=== PATIENT | male | born 1940 | race Caucasian/White ===

== ENCOUNTER 2019-08-06 12:10 | Inpatient (IN) ==
--- NOTE | 2019-08-06 13:06 | Emergency Department Note ---
ED Provider Note CHIEF COMPLAINT: Fall, right hip pain HISTORY OF PRESENTING ILLNESS: This is a 78-year-old male who presents to the emergency department via EMS with complaint of right hip pain after a fall this afternoon. Patient notes that he was working in the garage and was bending over and looking up a lot, he states he got lightheaded for a second and fell landing on his right hip. He has been unable to walk on the leg since the injury. He notes severe pain with any attempts to move the leg that he rates as 10/10, but states he does not have any pain at rest. He denies any numbness/tingling of the leg. He denies any previous injury to this leg. He did not hit his head and there was no loss of consciousness, he denies any other injuries from the fall. He does not take blood thinner medications. He reports a history of bad neuropathy in his feet, and states that he feels this is part of why he fell. He denies any chest pain, shortness of breath, palpitations, persistent dizziness, and denies any syncope. He denies abdominal pain, nausea, vomiting, or recent illness. REVIEW OF SYSTEMS: A complete 10 point review of systems was reviewed with the patient with pertinent positives and negatives as per history of present illness. All else were negative. PAST MEDICAL HISTORY: Type 2 diabetes SOCIAL HISTORY: Lives at home, he is a former smoker ALLERGIES: No known allergy PHYSICAL EXAM: CONSTITUTIONAL: Pleasant and cooperative. No acute distress, but appears anxious and he states he is nervous. Well appearing and well nourished. HEENT: Normocephalic, atraumatic. PERRL, EOMI. TMs normal. Pharynx normal. NECK: Supple, full active range of motion without discomfort. No midline tenderness to palpation of the cervical spine. RESPIRATORY: Clear to auscultation bilaterally with no wheezing, crackles, rhonchi or stridor. Equal expansion bilaterally. CARDIOVASCULAR: Regular rate and rhythm with no murmurs, rubs or gallops. Normal peripheral perfusion. No edema. GASTROINTESTINAL: Soft, nontender, nondistended. No palpable masses or HSM. Bowel sounds present in all quadrants. No CVA tenderness bilaterally. MUSCULOSKELETAL: No midline tenderness to palpation of the thoracic or lumbar spine. Tenderness to palpation over the right hip joint and pain with flexion and internal/external rotation of the right hip. Right leg appears slightly shortened compared to the left, but is not abnormally rotated. 2+ DP and PT p ulses in the right foot, sensory intact, the foot is pink, warm, and well perfused with brisk cap refill. INTEGUMENTARY: No rash or other significant dermatologic conditions noted. NEUROLOGIC: Alert and oriented X 4 with normal affect. Normal strength and sensation in all 4 extremities. Normal speech. ED COURSE AND MEDICAL DECISION MAKING: CC: Patient presenting with complaint of fall, right hip pain DIFFERENTIAL DIAGNOSIS: Includes, but not limited to hip contusion, hematoma, fracture, dislocation, pelvic fracture, sprain/strain, among others. INTERPRETATION OF LABS: No leukocytosis, no anemia, normal platelets, no significant electrolyte abnormalities, normal renal function, normal liver enzymes. IMAGING: XR hip RT 2V w pelvis, XR femur RT 2V routine HISTORY: 78 years-old Male fall, hip pain acute right hip and femur pain status post fall COMPARISON: None available TECHNIQUE: AP view of the pelvis with 2 views the right hip and 2 views of the right femur FINDINGS: PELVIS/RIGHT HIP: Mildly demineralized appearance of the bones. Degenerative changes of the lumbar spine. Moderate osteophyte is of the femoral acetabular joints. No acute pelvic fracture notified. There is an acute transcervical fracture of the right femur with mild impaction and mild apex superior angulation. No associated dislocation. Mild adjacent soft tissue swelling. FEMUR: Acute proximal femoral fracture as above. Mid and distal femur appear intact. Arterial calcifications are noted. Tricompartmental osteoarthritis of the knee. Trace joint effusion. Mild prepatellar/pretibial soft tissue swelling. IMPRESSION: Acute transcervical fracture of the right femur with mild impaction and mild apex superior angulation. EKG: Poor data quality due to patient tremors, shows normal sinus rhythm with a rate of 89 bpm, normal intervals, no apparent ST or T wave abnormalities, no ectopy by my interpretation. No previous EKG available for comparison. MEDICATION RECONCILIATION: I attest that I have personally reviewed the patient's current medication list. INITIAL VITAL SIGNS REVIEW: I reviewed the patient's initial vital signs and interpret them as follows: T: Afebrile; BP: Hypertensive; HR: Within normal limits; RR: Within normal limits; Pulse Ox: Within normal limits on room air. Blood pressure screening: The patient was found to have an elevated blood pressure, which was felt to be situational. MDM SUMMARY: Patient was evaluated at bedside, history and physical exam performed. Patient is alert and oriented, no acute distress, resting in the stretcher. Patient has tenderness to palpation over the right hip, and increased pain with flexion and rotation of the hip joint. The right leg is slightly shortened in length compared to the left. Neurovascularly intact. Orders were placed at bedside for basic labs, IV placement, x-rays of the pelvis, right hip, and right femur to evaluate for trauma. Patient was offered something for pain, he declines at this time. An EKG was performed due to report of some lightheadedness, this appears to be normal sinus. Patient discussed with Dr. Allison, who agrees with my assessment, plan, and disposition. Labs and imaging reviewed as above, labs are unremarkable. Imaging demonstrates an acute transcervical impacted fracture of the right femoral neck. I spoke on the phone with MARTINE Rivas with [facility] service, who agreed to evaluate the patient for admission. Patient reassessed multiple times throughout ED stay, he continues to be comfortable as long as he is not moving and declines anything for pain. The patient and his were updated on all results and plan for admission and probable surgery, he verbalized understanding and was agreeable to this plan. All questions were answered to the best of my ability at this time. Patient was stable at time of admission. The chart was completed utilizing [employer] Speech voice recognition software. Grammatical errors, random word insertions, pronoun errors, and incomplete sentences are an occasional consequence of this system due to software limitations, ambient noise, and hardware issues. Any formal questions or concerns about the content, text, or information contained within the body of this dictation should be directly addressed to the nurse practitioner for clarification. Impression & Plan Femur fracture, right Past Med/Surg History Family History Other Family history non-contributory Social History Preferred Language: Amharic Communication Ability: Effective Podiatry Doctor Required: No Beliefs That Will Affect Care: None Current Living Situation: Spouse Other Information That Helps Us Care for You: Yes Feels Safe at Home: Yes Safety Concerns: Feels Safe At This Time Smoking Status: Current every day smoker Tobacco Type: smokeless tobacco ; Do You Dip or Chew Tobacco: Yes ; Smoking End Date: 40-50 years ago ; Hx Alcohol Use: No Hx Substance Use: No Results & Data Vital Signs Vital Signs - 24 hr 08/06/19 12:17 08/06/19 13:51 Temperature 36.7 C Temperature Source Oral Pulse Rate 93 H Pulse Rate [Apical] 87 Pulse Rhythm Regular Pulse Rhythm [Apical] Regular Pulse Strength Normal Respiratory Rate 20 18 Respiratory Effort / Characteristics Non-Labored Spontaneous Non-Labored Spontaneous Respiratory Depth Normal Normal Respiratory Pattern Regular Regular Blood Pressure 171/92 H Blood Pressure [Right Arm] 145/69 H Blood Pressure Mean 118 Blood Pressure Mean [Right Arm] 94 Blood Pressure Position Sitting Pulse Oximetry 95 95 Oxygen Delivery Method Room Air Room Air Sepsis Recent Fever Within 48 Hours No Sepsis New/Unexplained Change in Mental Status No Sepsis Action Taken by Nursing No Action Required Laboratory Data Result diagrams: 08/06/19 13:02 08/06/19 12:57 Lab Results 08/06/19 08/06/19 08/06/19 Range/Units 12:57 12:57 13:02 WBC 10.11 (4.8-10.8) K/uL RBC 4.63 L (4.7-6.1) M/uL Hgb 15.1 (14.0-18.0) g/dL Hct 44.2 (42-52) % MCV 95.5 (80-100) fL MCH 32.6 (25-34) pg MCHC 34.2 (32-36) g/dL RDW Std Deviation 42.6 (36.4-46.3) fL RDW Coeff of Amari 12.4 (11.5-14.5) % Plt Count 212 (130-400) K/uL MPV 9.6 (7.4-10.4) fL Immature Gran % (Auto) 0.7 % Neut % (Auto) 71.5 % Lymph % (Auto) 18.7 % [place] % (Auto) 7.4 % Eos % (Auto) 1.4 % Baso % (Auto) 0.3 % Immature Gran # (Auto) 0.07 H (0.00-0.02) K/uL Neut # (Auto) 7.23 H (1.4-6.5) K/uL Lymph # (Auto) 1.89 (1.2-3.4) K/uL [place] # (Auto) 0.75 H (0.11-0.59) K/uL Eos # (Auto) 0.14 (0-0.5) K/uL Baso # (Auto) 0.03 (0-0.2) K/uL APTT Cancelled PTT Ratio Cancelled Sodium 138 (136-145) mmol/L Potassium 4.0 (3.5-5.1) mmol/L Chloride 105 (98-107) mmol/L Carbon Dioxide 25 (21-32) mmol/L Anion Gap 8.0 (3-11) BUN 15 (7-18) mg/dl Creatinine 1.37 (0.6-1.4) mg/dl Est Cr Clr Drug Dosing 48.9 ml/min Est GFR ( Amer) 57.7 Est GFR (Non-Af Amer) 49.7 BUN/Creatinine Ratio 10.7 (10-20) Glucose 123 H (70-99) mg/dl Calcium 9.8 (8.5-10.1) mg/dl Total Bilirubin 0.7 (0.2-1) mg/dl AST 16 (15-37) U/L ALT 24 (12-78) U/L Alkaline Phosphatase 61 (45-117) U/L Total Protein 7.9 (6.4-8.2) gm/dl Albumin 4.2 (3.4-5.0) gm/dl Globulin 3.7 (2.5-4.0) gm/dl Albumin/Globulin Ratio 1.1 (0.9-2) Administered Medications Lactated Ringer's (Lr) 1,000 mls @ 100 mls/hr IV .Q10H OMEGA Stop: 09/05/19 16:18 Last Admin: 08/06/19 16:54 Dose: 100 mls/hr Documented by: [id number] Discharge Plan Visit Data *Final* Discharge Date/Time: 08/06/19 15:40 Chief Complaint: Fall Stated Complaint: fall ED Provider: Hemant Allison ED Midlevel Provider: Ayde Low Discharge Problem: Femur fracture, right Patient Disposition: Admitted As Inpatient Condition: Good Discharge Instructions Interventions: ED Discharge Assessment Last Done: 08/06/19 15:40
[2019-08-06 13:19] LABS: Basophils # (auto) 0.03 K/uL (0-0.2); Basophils % (auto) 0.3 %; Eosinophils # (auto) 0.14 K/uL (0-0.5); Eosinophils % (auto) 1.4 %; Hematocrit (blood only) 44.2 % (42-52); Hemoglobin 15.1 g/dL (14.0-18.0); Immature Granulocytes # (auto) 0.07 K/uL (0.00-0.02); Immature Granulocytes % (auto) 0.7 %; Lymphocytes # (auto) 1.89 K/uL (1.2-3.4); Lymphocytes % (auto) 18.7 %; Mean Corpuscular Hemoglobin 32.6 pg (25-34); Mean Corpuscular Hgb Conc 34.2 g/dL (32-36); Mean Corpuscular Volume 95.5 fL (80-100); Mean Platelet Volume 9.6 fL (7.4-10.4); Monocytes # (auto) 0.75 K/uL (0.11-0.59); Monocytes % (auto) 7.4 %; Neutrophils # (auto) 7.23 K/uL (1.4-6.5); Neutrophils % (auto) 71.5 %; Platelet Count 212 K/uL (130-400); RDW Coefficient of Variation 12.4 % (11.5-14.5); RDW Standard Deviation 42.6 fL (36.4-46.3); Red Blood Count 4.63 M/uL (4.7-6.1); White Blood Count 10.11 K/uL (4.8-10.8)
--- NOTE | 2019-08-06 13:30 | XRay Report ---
XR hip RT 2V w pelvis, XR femur RT 2V routine HISTORY: 78 years-old Male fall, hip pain acute right hip and femur pain status post fall COMPARISON: None available TECHNIQUE: AP view of the pelvis with 2 views the right hip and 2 views of the right femur FINDINGS: PELVIS/RIGHT HIP: Mildly demineralized appearance of the bones. Degenerative changes of the lumbar spine. Moderate oste ophyte is of the femoral acetabular joints. No acute pelvic fracture notified. There is an acute garay scervical fracture of the right femur with mild impaction and mild apex superior angulation. No assoc iated dislocation. Mild adjacent soft tissue swelling. FEMUR: Acute proximal femoral fracture as above. Mid and distal femur appear intact. Arterial calcifications are noted. Tricompartmental osteoarthritis of the knee. Trace joint effusion. Mild prepatellar/preti bial soft tissue swelling. IMPRESSION: Acute transcervical fracture of the right femur with mild impaction and mild apex superio r angulation. ACT 112: Negative or not required by law. The above report was generated using voice recognition software. It may contain grammatical, syntax o r spelling errors. Electronically signed by: Kris Olvera M.D. 08/06/2019 1:29 PM
[2019-08-06 13:34] LABS: Albumin Globulin Ratio 1.1 (0.9-2); Albumin Level 4.2 gm/dl (3.4-5.0); BUN Creatinine Ratio 10.7 (10-20); Bilirubin,Total 0.7 mg/dl (0.2-1); Calcium 9.8 mg/dl (8.5-10.1); Creatinine Clr Calc Pharmacy 48.9 ml/min; Est GFR (African American) 57.7; Est GFR (Non-African American) 49.7; Globulin 3.7 gm/dl (2.5-4.0); Total Protein 7.9 gm/dl (6.4-8.2)
--- NOTE | 2019-08-06 15:20 | History & Physical Report ---
Date of Service August 06, 2019 Assessment & Plan (1) Femur fracture, right: This is a 78-year-old male with a PMH of type 2 diabetes and smokeless tobacco use who presents after fall this afternoon and was found to have acute fracture of right femur. S/p mechanical fall in setting of peripheral neuropathy Femur XR with acute transcervical fracture of the right femur with mild impaction and mild apex superior angulation Discussed with [facility] orthopedic service, who will evaluate patient. NPO after midnight Pain control, IV fluids, pre-op abx, bedrest ordered per geriatric hip fracture protocol Pre-op EKG with normal sinus rhythm. CXR with low lung volumes. Cr 1.37, GFR 49.7 Ortho and anesthesiology consulted (2) Diabetes mellitus, type II: A1c 5.7 in Jul 2019 -Hold home agents -SSI while in-patient -BSG AC HS (3) Tobacco use: Daily smokeless tobacco use -Discussed cessation DVT Ppx: SCDs Code status: FULL PCP: Arthur Dispo: Admitted to med/surg. Plan to return home once medically stable. Patient seen in collaboration with Dr. Darby. Please see addendum. History of Present Illness Chief Complaint: Right hip pain Primary Care Provider: Tj Gibson MD This is a 78-year-old male with a PMH of type 2 diabetes and smokeless tobacco use who presents after fall this afternoon. Patient was working in his friend's garage and was reaching upwards working on garage door for extended period of time when he became lightheaded and fell, landing on his right side. Has history of peripheral neuropathy, which he feels also contributed to fall. After fall, patient was able to get up but cannot bear any weight on right leg and friend called EMS. Denies any head trauma or loss of consciousness. Has proximal right leg pain with any type of movement but is pain-free at rest. Denies any lightheadedness, visual changes, chest pain, palpitations or shortness of breath. No recent illnesses, fever or chills. No nausea, vomiting or abdominal pain. Denies dysuria, diarrhea or constipation. Denies any surgical history. Does not take any blood thinning medication. No known history of [place], CKD or DVT/PE. Only medication patient is on his metformin. Allergies Allergy/AdvReac Type Severity Reaction Status Date / Time No Known Allergies Allergy Unverified 10/02/13 13:01 Home Medications Home Medications Medication Instructions Recorded Confirmed Type metformin 500 mg PO BID 08/06/19 08/06/19 History Past Med/Surg History Medical History Diabetes mellitus, type II Tobacco use Surgical History No history of previous surgery Family History Other Family history non-contributory Social History Preferred Language: Azeri Communication Ability: Effective Rat Culturist Required: No Beliefs That Will Affect Care: None Current Living Situation: Spouse Other Information That Helps Us Care for You: Yes Feels Safe at Home: Yes Safety Concerns: Feels Safe At This Time Smoking Status: Current every day smoker Tobacco Type: smokeless tobacco ; Do You Dip or Chew Tobacco: Yes ; Smoking End Date: 40-50 years ago ; Hx Alcohol Use: No Hx Substance Use: No Review of Systems Review of Systems: At least ten systems reviewed and negative except as noted in the HPI. Physical Exam Physical Exam: General Appearance: WD/WN, vitals as above, NAD, sitting up in bed, pleasant, conversing easily Head: normocephalic, atraumatic Eyes: normal inspection, PERRL, conjunctivae normal, anicteric sclerae ENT: external ear and nose normal, oropharynx normal Neck: trachea midline, no thyromegaly normal visual inspection Respiratory: lungs clear to auscultation, no wheeze, rales, rhonchi. Normal insp/exp effort, no accessory muscle use Cardiovascular: regular rate, rhythm, no murmur, normal peripheral pulses. Vessels: no JVD or carotid bruit Chest: normal inspection of chest Abdomen/GI: normal bowel sounds, soft, nontender, no hepatosplenomegaly Extremities/Musculoskelatal: R leg internally rotated and shorteded. TTP along lateral proximal thigh. No deformity noted. No cyanosis or clubbing, extremities motor strength 5/5 Neurologic: PERRL, EOMI, accommodation nl, no face palsy, no dysarthria, CN's II-XI intact bilaterally and moves all extremities Psychiatric: A+Ox3, euthymic affect Skin: no rashes, normal color, warm/dry Results & Data Vital Signs (Past 12 Hours) Vital Signs Temp Pulse Pulse Resp BP BP Pulse Ox 08/06/19 13:51 87 18 145/69 H 95 08/06/19 12:17 36.7 C 93 H 20 171/92 H 95 Laboratory Results Short CBC 08/06/19 08/06/19 08/06/19 Range/Units 12:57 12:57 13:02 WBC 10.11 (4.8-10.8) K/uL RBC 4.63 L (4.7-6.1) M/uL Hgb 15.1 (14.0-18.0) g/dL Hct 44.2 (42-52) % MCV 95.5 (80-100) fL MCH 32.6 (25-34) pg MCHC 34.2 (32-36) g/dL RDW Std Deviation 42.6 (36.4-46.3) fL RDW Coeff of Amari 12.4 (11.5-14.5) % Plt Count 212 (130-400) K/uL MPV 9.6 (7.4-10.4) fL Immature Gran % (Auto) 0.7 % Neut % (Auto) 71.5 % Lymph % (Auto) 18.7 % [place] % (Auto) 7.4 % Eos % (Auto) 1.4 % Baso % (Auto) 0.3 % Immature Gran # (Auto) 0.07 H (0.00-0.02) K/uL Neut # (Auto) 7.23 H (1.4-6.5) K/uL Lymph # (Auto) 1.89 (1.2-3.4) K/uL [place] # (Auto) 0.75 H (0.11-0.59) K/uL Eos # (Auto) 0.14 (0-0.5) K/uL Baso # (Auto) 0.03 (0-0.2) K/uL APTT Cancelled PTT Ratio Cancelled Sodium 138 (136-145) mmol/L Potassium 4.0 (3.5-5.1) mmol/L Chloride 105 (98-107) mmol/L Carbon Dioxide 25 (21-32) mmol/L Anion Gap 8.0 (3-11) BUN 15 (7-18) mg/dl Creatinine 1.37 (0.6-1.4) mg/dl Est Cr Clr Drug Dosing 48.9 ml/min Est GFR ( Amer) 57.7 Est GFR (Non-Af Amer) 49.7 BUN/Creatinine Ratio 10.7 (10-20) Glucose 123 H (70-99) mg/dl POC Glucose (70-99) Calcium 9.8 (8.5-10.1) mg/dl Total Bilirubin 0.7 (0.2-1) mg/dl AST 16 (15-37) U/L ALT 24 (12-78) U/L Alkaline Phosphatase 61 (45-117) U/L Total Protein 7.9 (6.4-8.2) gm/dl Albumin 4.2 (3.4-5.0) gm/dl Globulin 3.7 (2.5-4.0) gm/dl Albumin/Globulin Ratio 1.1 (0.9-2) Blood Type Antibody Screen 08/06/19 08/06/19 Range/Units 16:33 17:27 WBC (4.8-10.8) K/uL RBC (4.7-6.1) M/uL Hgb (14.0-18.0) g/dL Hct (42-52) % MCV (80-100) fL MCH (25-34) pg MCHC (32-36) g/dL RDW Std Deviation (36.4-46.3) fL RDW Coeff of Amari (11.5-14.5) % Plt Count (130-400) K/uL MPV (7.4-10.4) fL Immature Gran % (Auto) % Neut % (Auto) % Lymph % (Auto) % [place] % (Auto) % Eos % (Auto) % Baso % (Auto) % Immature Gran # (Auto) (0.00-0.02) K/uL Neut # (Auto) (1.4-6.5) K/uL Lymph # (Auto) (1.2-3.4) K/uL [place] # (Auto) (0.11-0.59) K/uL Eos # (Auto) (0-0.5) K/uL Baso # (Auto) (0-0.2) K/uL APTT PTT Ratio Sodium (136-145) mmol/L Potassium (3.5-5.1) mmol/L Chloride (98-107) mmol/L Carbon Dioxide (21-32) mmol/L Anion Gap (3-11) BUN (7-18) mg/dl Creatinine (0.6-1.4) mg/dl Est Cr Clr Drug Dosing ml/min Est GFR ( Amer) Est GFR (Non-Af Amer) BUN/Creatinine Ratio (10-20) Glucose (70-99) mg/dl POC Glucose 132 H (70-99) Calcium (8.5-10.1) mg/dl Total Bilirubin (0.2-1) mg/dl AST (15-37) U/L ALT (12-78) U/L Alkaline Phosphatase (45-117) U/L Total Protein (6.4-8.2) gm/dl Albumin (3.4-5.0) gm/dl Globulin (2.5-4.0) gm/dl Albumin/Globulin Ratio (0.9-2) Blood Type AB Positive Antibody Screen NEGATIVE BMP 08/06/19 12:57 Sodium 138 Potassium 4.0 Chloride 105 Carbon Dioxide 25 BUN 15 Creatinine 1.37 Glucose 123 H Calcium 9.8 Liver Function 08/06/19 Range/Units 12:57 Total Bilirubin 0.7 (0.2-1) mg/dl AST 16 (15-37) U/L ALT 24 (12-78) U/L Alkaline Phosphatase 61 (45-117) U/L Albumin 4.2 (3.4-5.0) gm/dl Diagnostic Findings CXR: IMPRESSION: Low lung volumes. There are increased markings at the lung bases. This is nonspecific but may represent atelectasis given the low lung volumes. Hip/pelvis XR: IMPRESSION: Acute transcervical fracture of the right femur with mild impaction and mild apex superior angulation. Femur XR: IMPRESSION: Acute transcervical fracture of the right femur with mild impaction and mild apex superior angulation. ECG Rhythm: normal sinus Supervising Physician Co-Signing Physician Notes Pt was seen and examined. Agreed with Galina VIDAL exam, assessment and plan. 78-year-old male with a PMH of type 2 diabetes present to the ER after fall. Pt said that he fell at his friend garage after helping to fix a door. He said that he became lightheaded and fell. Pelvis/hip xray showed acute transcervical fracture of the right femur with mild impaction and mild apex superior angulation. Pt said that he was very active and able to walk a few block and climbs 1-2 flight of stairs without any chest discomfort and SOB before the fall. Currently denies any chest pain, palpitation, dizziness and SOB. He had a functional capacity with a METS above 4 before fracture his right hip. Pt understood surgical risk such as bleeding, blood clot, infections and even . Ortho will discuss the procedure with him in detail. Will make NPO after midnight. Continue pain control. Will continue monitor closely. MD Wilner
[2019-08-06] MEDS ORDERED: MAGNESIUM HYDROXIDE SUSP 30 ML UDC PO PRN (16:19)
[2019-08-06] MEDS ORDERED: MoRPHine SULFATE 2 MG/ML CARP IV PRN (16:19)
[2019-08-06] MEDS ORDERED: NALOXONE HCL 0.4 MG/1 ML VIAL/CARP IV PRN (16:19)
[2019-08-06] MEDS ORDERED: ACETAMINOPHEN 325 MG TAB PO PRN (16:19)
[2019-08-06] MEDS ORDERED: ONDANSETRON INJ 2 MG/ML 2 ML VIAL IV PRN (16:19)
[2019-08-06] MEDS ORDERED: bisacodyL 10 MG SUPP PR PRN (16:19)
--- NOTE | 2019-08-06 16:27 | XRay Report ---
XR chest 1V portable HISTORY: Preop. COMPARISON: None. FINDINGS: There are low lung volumes. The heart is borderline enlarged. Increased markings at the oly g bases. The upper lung zones are clear. No evidence for pulmonary edema. No pleural effusions. No pn eumothorax. IMPRESSION: Low lung volumes. There are increased markings at the lung bases. This is nonspecific but may represe nt atelectasis given the low lung volumes. ACT 112: Negative or not required by law. Electronically signed by: Andres Carlos M.D. 08/06/2019 4:26 PM
[2019-08-06] MEDS: LACTATED RINGER'S 1,000 ML IV SCH (16:54)
[2019-08-06] MEDS ORDERED: GLUCAGON FOR INJ 1 MG VIAL SQ PRN (18:29)
[2019-08-06] MEDS ORDERED: CARBOHYDRATES FOR HYPOGLYCEMIA PO PRN (18:29)
[2019-08-06] MEDS ORDERED: GLUCOSE 40% GEL 15 GM TUBE PO PRN (18:29)
[2019-08-06] MEDS ORDERED: GLUCOSE 10 TABS/TUBE PO PRN (18:29)
[2019-08-06] MEDS ORDERED: DEXTROSE 50% 50 ML SYRINGE IV PRN (18:29)
--- NOTE | 2019-08-06 19:44 | Anesthesiology Consultation ---
Date of Service August 06, 2019 78 y.o. M s/p mechanical fall for hip fx. Hx of NIDDM and smokeless tobacco. He appears to be a candidate for early operative management. Medicine has made him NPO after midnight for possible surgical intervention on 08/07/19. Assessment & Plan (1) Encounter for pre-operative examination: Chart Review Chart Review: Acceptable Risk for Surgery Consults Requested none History Surgery Operation Date: 08/07/19 07:00 Proposed Procedures p Right Bipolar Hemiarthroplasty versus - Efren Reddy DO s Right Total Hip Arthroplasty - Efren Reddy DO Height/Weight Height: 5 ft 11 in Weight: 93.3 kg Allergies Allergy/AdvReac Type Severity Reaction Status Date / Time No Known Allergies Allergy Unverified 10/02/13 13:01 Medications Home Medications Medication Instructions Recorded Confirmed Last Taken metformin 500 mg PO BID 08/06/19 08/06/19 08/06/19 08:00 Active Medications Generic Name Dose Route Start Last Admin Trade Name Freq PRN Reason Stop Dose Admin Acetaminophen 650 mg 08/06/19 16:19 08/06/19 19:42 Tylenol PO 09/05/19 16:18 650 mg Q4H PRN Administration pain/fever Lactated Ringer's 1,000 mls @ 100 mls/hr 08/06/19 16:19 08/06/19 16:54 Lr IV 09/05/19 16:18 100 mls/hr .Q10H OMEGA Administration NPO Date Last Intake of Fluids: 08/06/19 Time Last Intake of Fluids: 23:59 Date Last Intake of Solids: 08/06/19 Time Last Intake of Solids: 23:59 Past Medical History Medical History Diabetes mellitus, type II Tobacco use Past Family History Family History Other Family history non-contributory Past Surgical History Surgical History No history of previous surgery Social History Smoking Status: Current every day smoker tobacco type: smokeless tobacco Do You Dip or Chew Tobacco: Yes Smoking End Date: 40-50 years ago Hx Alcohol Use: No Hx Substance Use: No Physical Exam Vital Signs Last Vital Signs Temp 36.7 C 08/06/19 16:24 Pulse 93 H 08/06/19 16:54 Resp 20 01/02/20 16:54 BP 168/88 H 08/06/19 16:54 Pulse Ox 94 08/06/19 16:54 Testing Laboratory Results 08/06/19 13:02 08/06/19 12:57 APTT Cancelled 08/06/19 12:57 Blood Type AB Positive 08/06/19 16:33 Antibody Screen NEGATIVE 08/06/19 16:33 08/06/19 17:27 POC Glucose 132 H Electrocardiogram Date: 08/06/19 Findings: + NSR @ (89) Chest X-Ray Date: 08/06/19 Findings: + NAD and + atelectasis (bibasilar)
[2019-08-06] MEDS ORDERED: INSULIN ASPART 100 UNITS/ML 3 ML PEN SC SCH ×2 (21:00)
[2019-08-06] MEDS: DOCUSATE SODIUM/SENNA 50/8.6MG TAB PO SCH (21:07)
[2019-08-07] MEDS ORDERED: Nursing to Pharmacy Communication ONE ×2 (01:31→20:39)
[2019-08-07] MEDS: LACTATED RINGER'S 1,000 ML IV SCH ×3 (02:33→22:29)
[2019-08-07] MEDS ORDERED: CEFAZOLIN 2000MG 2,000 MG/15 ML SYR IV SCH (06:00)
[2019-08-07] MEDS: INSULIN ASPART 100 UNITS/ML 3 ML PEN SC SCH ×3 (06:19→21:45)
--- NOTE | 2019-08-07 07:54 | Orthopedic Consultation ---
Date of Consultation August 07, 2019 Assessment & Plan (1) Transcervical fracture of right femur: Patient will require bipolar hemiarthroplasty versus total hip arthroplasty. Patient is a community ambulator and is quite active. He does not use any kind of assistive device. X-rays to be reviewed by Dr. Reddy. He will discuss the case with the patient and make final decision on which type of prosthesis will be used. Plan for OR today. History of Present Illness Reason for Consultation: Right hip fracture Attending Physician: Chapito Darby MD History of Present Illness Patient is a 78-year-old white male who states that he had gone to a friend's house in [place] to help him with a door that was not shutting. The door sounded to be a type of attic door that was not closing and the patient was continuing to look up at the door and try multiple times to get it hooked shut. He finally succeeded in getting the door shut. At that time he turned his head and looked down quickly and states that he became lightheaded. He lost his balance and fell onto his right side. He denies loss of consciousness. He did not have any lightheadedness after the incident and denies any shortness of breath or chest pain prior to or after. Patient states that he has not had any history of lightheadedness prior to this incident. Patient states that he is fairly active and continues to be a community ambulator. He denies any pain in the right hip prior to the accident. He had immediate pain in the hip and groin on the right side and was having difficulty ambulating. He was brought to the ER here and x-rays were taken. He was found to have a displaced right femoral neck fracture and we have been asked to take care of his fracture. Allergies Allergy/AdvReac Type Severity Reaction Status Date / Time No Known Allergies Allergy Unverified 10/02/13 13:01 Home Medications Home Medications Medication Instructions Recorded Confirmed Type metformin 500 mg PO BID 08/06/19 08/06/19 History Patient History Medical History Diabetes mellitus, type II Tobacco use Surgical History No history of previous surgery Family History Other Family history non-contributory Social History Preferred Language: Sammarinese Communication Ability: Effective Design Teacher Required: No Beliefs That Will Affect Care: None Current Living Situation: Spouse Other Information That Helps Us Care for You: Yes Feels Safe at Home: Yes Safety Concerns: Feels Safe At This Time Smoking Status: Current every day smoker Tobacco Type: smokeless tobacco ; Do You Dip or Chew Tobacco: Yes ; Smoking End Date: 40-50 years ago ; Hx Alcohol Use: No Hx Substance Use: No Review of Systems Review of Systems: No recent fevers, chills, flu or cold-like symptoms. No unexplained weight loss or weight gain. No increased cough or sputum production. Denies any history of chest pain, chest pressure, irregular heartbeat. Denies shortness of breath on exertion or at rest. No history of hemoptysis. Denies any history of unusual abdominal pain, nausea, vomiting, diarrhea. No history of peptic ulcer disease or GERD. Denies hematemesis, melena, hematochezia. Denies history of hematuria, pyuria, dysuria, renal calculi. No history of CVA, TIA, vertigo, migraine headaches. Physical Exam Physical Exam: Patient is currently awake, alert and oriented x3. No acute distress. Pleasant and cooperative. Focusing the exam on the right lower extremity, the right lower extremity is noted to be shortened and externally rotated compared to the left. No attempts are made to do range of motion of the right hip due to fracture. This also applies to the right knee due to causing pain in the right hip. His right knee appears benign without effusion and is nontender on palpation. He has good range of motion of his right ankle and toes and at this time sensation appears to be intact. Nontender at the ankles and toes of the right foot. He states that he gets numbness and tingling in his feet off and on but is not a constant. Left lower extremity is unaffected. Range of motion is within normal limits at the left hip knee and ankle. Upper extremities are unaffected and he has good range of motion and is nontender at the shoulders elbows and wrist. Distal pulses are equal bilaterally of the upper extremities. He denies any neck pain on palpation and has good range of motion. Currently denies any thoracic or low back pain. No gross motor or sensory loss seen at this time. Results & Data Vital Signs (Past 12 Hours) Vital Signs Temp Pulse Resp BP Pulse Ox 08/06/19 23:34 36.4 C L 96 H 17 154/79 H 90 Laboratory Results Laboratory Results WBC 10.11 K/uL (4.8-10.8) 08/06/19 13:02 RBC 4.63 M/uL (4.7-6.1) L 08/06/19 13:02 Hgb 15.1 g/dL (14.0-18.0) 08/06/19 13:02 Hct 44.2 % (42-52) 08/06/19 13:02 MCV 95.5 fL (80-100) 08/06/19 13:02 MCH 32.6 pg (25-34) 08/06/19 13:02 MCHC 34.2 g/dL (32-36) 08/06/19 13:02 RDW Std Deviation 42.6 fL (36.4-46.3) 08/06/19 13:02 RDW Coeff of Amari 12.4 % (11.5-14.5) 08/06/19 13:02 Plt Count 212 K/uL (130-400) 08/06/19 13:02 MPV 9.6 fL (7.4-10.4) 08/06/19 13:02 Immature Gran % (Auto) 0.7 % 08/06/19 13:02 Neut % (Auto) 71.5 % 08/06/19 13:02 Lymph % (Auto) 18.7 % 08/06/19 13:02 [place] % (Auto) 7.4 % 08/06/19 13:02 Eos % (Auto) 1.4 % 08/06/19 13:02 Baso % (Auto) 0.3 % 08/06/19 13:02 Immature Gran # (Auto) 0.07 K/uL (0.00-0.02) H 08/06/19 13:02 Neut # (Auto) 7.23 K/uL (1.4-6.5) H 08/06/19 13:02 Lymph # (Auto) 1.89 K/uL (1.2-3.4) 08/06/19 13:02 [place] # (Auto) 0.75 K/uL (0.11-0.59) H 08/06/19 13:02 Eos # (Auto) 0.14 K/uL (0-0.5) 08/06/19 13:02 Baso # (Auto) 0.03 K/uL (0-0.2) 08/06/19 13:02 APTT Cancelled 08/06/19 12:57 PTT Ratio Cancelled 08/06/19 12:57 Sodium 138 mmol/L (136-145) 08/06/19 12:57 Potassium 4.0 mmol/L (3.5-5.1) 08/06/19 12:57 Chloride 105 mmol/L (98-107) 08/06/19 12:57 Carbon Dioxide 25 mmol/L (21-32) 08/06/19 12:57 Anion Gap 8.0 (3-11) 08/06/19 12:57 BUN 15 mg/dl (7-18) 08/06/19 12:57 Creatinine 1.37 mg/dl (0.6-1.4) 08/06/19 12:57 Est Cr Clr Drug Dosing 48.9 ml/min 08/06/19 12:57 Est GFR ( Amer) 57.7 08/06/19 12:57 Est GFR (Non-Af Amer) 49.7 08/06/19 12:57 BUN/Creatinine Ratio 10.7 (10-20) 08/06/19 12:57 Glucose 123 mg/dl (70-99) H 08/06/19 12:57 POC Glucose 125 (70-99) H 08/07/19 05:59 Calcium 9.8 mg/dl (8.5-10.1) 08/06/19 12:57 Total Bilirubin 0.7 mg/dl (0.2-1) 08/06/19 12:57 AST 16 U/L (15-37) 08/06/19 12:57 ALT 24 U/L (12-78) 08/06/19 12:57 Alkaline Phosphatase 61 U/L (45-117) 08/06/19 12:57 Total Protein 7.9 gm/dl (6.4-8.2) 08/06/19 12:57 Albumin 4.2 gm/dl (3.4-5.0) 08/06/19 12:57 Globulin 3.7 gm/dl (2.5-4.0) 08/06/19 12:57 Albumin/Globulin Ratio 1.1 (0.9-2) 08/06/19 12:57 Blood Type AB Positive 08/06/19 16:33 Antibody Screen NEGATIVE 08/06/19 16:33 Diagnostic Findings Patient: CODIE PELAEZAdmit Date: 08/06/19 MR#: [id number]: [address] Acct ID:[id number]: Date: 1940[facility] Zip: [place] [address] Age: 78Location: ED Sex: M Room/Bed: Att Phy:Diagnosis: fall Mary Phy: Tj Gibson, MDService Date: 08/06/19 Fam Phy:Interpreting Phy: Justus Olvera Admit Phy: Ordering Phy: Ayde Low CRNP cc: ~ XR hip RT 2V w pelvis, XR femur RT 2V routine HISTORY: 78 years-old Male fall, hip pain acute right hip and femur pain status post fall COMPARISON: None available TECHNIQUE: AP view of the pelvis with 2 views the right hip and 2 views of the right femur FINDINGS: PELVIS/RIGHT HIP: Mildly demineralized appearance of the bones. Degenerative changes of the lumbar spine. Moderate osteophyte is of the femoral acetabular joints. No acute pelvic fracture notified. There is an acute transcervical fracture of the right femur with mild impaction and mild apex superior angulation. No associated dislocation. Mild adjacent soft tissue swelling. FEMUR: Acute proximal femoral fracture as above. Mid and distal femur appear intact. Arterial calcifications are noted. Tricompartmental osteoarthritis of the knee. Trace joint effusion. Mild prepatellar/pretibial soft tissue swelling. IMPRESSION: Acute transcervical fracture of the right femur with mild impaction and mild apex superior angulation. ACT 112: Negative or not required by law. The above report was generated using voice recognition software. It may contain grammatical, syntax or spelling errors. Electronically signed by: Kris Olvera M.D. 08/06/2019 1:29 PM
--- NOTE | 2019-08-07 08:15 | Electrocardiogram Report ---
Test Reason : Blood Pressure : / mmHG Vent. Rate : 089 BPM Atrial Rate : 089 BPM P-R Int : 170 ms QRS Dur : 074 ms QT Int : 358 ms P-R-T Axes : 046 006 045 degrees QTc Int : 435 ms Poor data quality, interpretation may be adversely affected Normal sinus rhythm Normal ECG No previous ECGs available Confirmed by Gorge Soto ([id number]) on 08/06/2019 5:50:48 PM Referred By: REFERRED SELF Confirmed By:Christopher Soto
[2019-08-07 12:18] LABS: INR 1.1 (0.9-1.1); Prothrombin Time 11.3 Seconds (9.0-12.0)
[2019-08-07] MEDS ORDERED: ATROPINE SULFATE 0.1 MG/ML 10ML SYR IV PRN (15:49)
[2019-08-07] MEDS ORDERED: ePHEDrine sulfate 50 MG/ML AMP IV PRN (15:49)
[2019-08-07] MEDS ORDERED: ONDANSETRON INJ 2 MG/ML 2 ML VIAL IV PRN (15:49)
[2019-08-07] MEDS ORDERED: fentaNYL citrate 100 MCG/2 ML VIAL IV PRN (15:49)
[2019-08-07] MEDS ORDERED: LIDOCAINE HCL 2% 2 ML VIAL/AMP(20MG/ML) INFIL ONE (15:51)
[2019-08-07] MEDS ORDERED: MIDAZOLAM HCL 1 MG/ML 2ML VIAL ONE ×2 (15:51→17:07)
[2019-08-07] MEDS ORDERED: fentaNYL citrate 100 MCG/2 ML VIAL ONE (15:51)
[2019-08-07] MEDS ORDERED: ONDANSETRON INJ 2 MG/ML 2 ML VIAL ONE (15:51)
[2019-08-07] MEDS ORDERED: DEXAMETHASONE SOD INJ 4 MG/ML VIAL ONE (15:51)
[2019-08-07] MEDS ORDERED: PROPOFOL IV EMULSION 10 MG/ML 20 ML VIAL IV ONE ×3 (15:51→18:34)
[2019-08-07] MEDS ORDERED: KETAMINE HCL INJ 50 MG/ML 10 ML VIAL ONE (15:52)
[2019-08-07] MEDS ORDERED: GLYCOPYRROLATE 0.2 MG/ML VIAL ONE (15:52)
[2019-08-07] MEDS ORDERED: BUPIVACAINE 0.5 % 5 MG/1 ML PF 10ML VIAL ONE (16:35)
[2019-08-07] MEDS ORDERED: BACITRACIN INJ 50,000 UNIT VIAL ONE (16:43)
--- NOTE | 2019-08-07 16:43 | History & Physical Bridge Note ---
Date of Service August 07, 2019 History & Physical Bridge Note I have examined the patient, reviewed the History & Physical and in the interval since the performance of the History & Physical I have noted the following changes of clinical significance: To OR for right hip hemiarthroplasty versus total hip right. NPO. Consent obtained.
[2019-08-07] MEDS ORDERED: ORTHO JOINT ANESTHETIC ONE (16:44)
--- NOTE | 2019-08-07 18:21 | Hospitalist Progress Note ---
Date of Service August 07, 2019 Assessment & Plan (1) Femur fracture, right: Patient is a 78-year-old male with H/O Type 2 diabetes and smokeless tobacco use who presents after fall this afternoon and was found to have acute fracture of right femur. Right hip fracture S/P Mechanical fall in setting of peripheral neuropathy Hip X ray:Acute transcervical fracture of the right femur with mild impaction and mild apex superior angulation. Pain control Appreciate orthopedics input Bowel regimen to prevent constipation Monitor for postop anemia Activity, wound care as per Ortho. (2) Diabetes mellitus, type II: A1c 5.7 in Jul 2019 Hold home agents Continue insulin sliding scale while hospitalized Monitor blood glucose levels (3) Tobacco use: Daily smokeless tobacco use Counseled Cessation DVT Px: SCDs for now Code status: FULL Disposition May need Rehab placement Subjective Patient is seen and examined at bedside Complains of right hip pain with movement Plan for bipolar hemiarthroplasty of right hip today Denies any chest pain, shortness of breath, dizziness, nausea, abdominal pain Family at bedside Offers no other complaints Review of Systems Review of Systems: All systems reviewed & are unremarkable except as noted in HPI & below Physical Exam Physical Exam: Physical Exam: Vitals signs as noted above General Appearance:Moderately built and nourished, no apparent distress Head: normocephalic, Atraumatic Eyes: normal inspection, EOMI Neck: supple, Trachea midline Respiratory/Chest: Normal breath sounds, CTA Cardiovascular: S1, S2, No murmur Abdomen/GI:Soft, Non tender, Bowel sounds present Extremities/Musculoskelatal:normal inspection, no edema, RLE shortened, externally rotated, decreased ROM, right hip tender Neurologic/Psych:AAOX3, grossly no focal neurological deficits Skin: normal color, warm Results & Data Vital Signs (Past 12 Hours) Vital Signs Temp Pulse Resp BP Pulse Ox 08/07/19 14:06 37.1 C 91 H 18 143/77 H 91
--- NOTE | 2019-08-07 18:46 | Post Operative Brief Note ---
Immediate Post Op Note v1 Date of Surgery August 07, 2019 Pre & Post Diagnosis Operation Date: 08/07/19 07:00 Pre-Op Diagnosis: Acute displaced transcervical fracture of the right femur Post-Op Diagnosis: Acute displaced transcervical fracture of the right femur I identified the patient and participated in the time-out.: Yes Procedure Operation Date: 08/07/19 07:00 Actual Procedures p Right Bipolar Hemiarthroplasty, uncemented (Right) - Efren Reddy DO Surgeon Efren Reddy DO Box Feeder Florencio Newton PA-C Estimated Blood Loss 50 Findings Consistent with Post-Op Diagnosis Specimens Bone and tissue right hip Drains Hemovac Drain Anesthesia Type Spinal MAC Complications none Disposition Accompanied Patient To Recovery: No Disposition: Recovery Room Overlapping Procedure I was present for: the critical portions of procedure. I was immediately available: during the entire case.
[2019-08-07] MEDS ORDERED: HYDROmorphone INJ 0.5 MG/0.5 ML SYR IV PRN (19:08)
--- NOTE | 2019-08-07 19:38 | XRay Report ---
AP PELVIS, CROSSTABLE LATERAL RIGHT HIP History: Right hip hemiarthroplasty. Right hip fracture. Postop. FINDINGS: The patient is status post a right hip hemiarthroplasty. The hardware is intact. No fractur e or dislocation. Skin soo and surgical drains are in place. IMPRESSION: Right hip hemiarthroplasty. No evidence for hardware complication ACT 112: Negative or not required by law. Electronically signed by: Andres Carlos M.D. 08/07/2019 7:37 PM
--- NOTE | 2019-08-07 19:58 | Anesthesiology Progress Note ---
Date of Service August 07, 2019 Anesthesia Post Procedure Vital Signs Vital Signs: Temp Pulse Pulse Resp BP Pulse Ox 08/07/19 19:45 87 19 172/86 H 90 08/07/19 19:35 103 H 18 129/72 92 08/07/19 19:25 97 H 20 123/67 91 08/07/19 19:15 87 18 118/58 L 86 L 08/07/19 19:05 70 18 110/59 L 97 08/07/19 18:59 99.0 F 62 18 95/59 L 97 08/07/19 14:06 98.8 F 91 H 18 143/77 H 91 08/06/19 23:34 97.5 F L 96 H 17 154/79 H 90 Pain Intensity Right Hip: Pain Intensity: 10 Transfer of Care Handoff Completed per policy Notes Mental Status: alert / awake / arousable and participated in evaluation Patient Amnestic to Procedure: Yes Nausea / Vomiting: adequately controlled Pain: adequately controlled Airway Patency, RR, SpO2: stable & adequate BP & HR: stable & adequate Hydration State: stable & adequate Neuraxial Anesthesia: was administered and sensory block is resolving Anesthetic Complications: no major complications apparent and Pt Satisfied with anesthetic care
[2019-08-07] MEDS ORDERED: SODIUM CHLORIDE 0.9% 1000ML 1,000 ML IV SCH (20:13)
[2019-08-07] MEDS ORDERED: NALOXONE HCL 0.4 MG/1 ML VIAL/CARP IV PRN (20:13)
[2019-08-07] MEDS ORDERED: MAGNESIUM HYDROXIDE SUSP 30 ML UDC PO PRN (20:13)
[2019-08-07] MEDS ORDERED: bisacodyL 10 MG SUPP PR PRN (20:13)
[2019-08-07] MEDS: DOCUSATE SODIUM 100 MG CAP PO SCH (21:11)
[2019-08-07] MEDS: SENNA 8.6 MG TAB PO SCH (21:11)
[2019-08-07] MEDS: KETOROLAC TROMETHAMINE 15 MG/ML VIAL IV SCH (21:12)
[2019-08-07] MEDS: ACETAMINOPHEN 500 MG TAB PO SCH (21:12)
[2019-08-07] MEDS: DOCUSATE SODIUM/SENNA 50/8.6MG TAB PO SCH (21:13)
[2019-08-07] MEDS: CEFAZOLIN 2000MG 2,000 MG/15 ML SYR IV SCH (22:26)
[2019-08-08] MEDS: OXYCODONE HCL IR 5 MG TAB (IMMEDIATE RELEASE) PO PRN ×2 (00:12→06:37)
[2019-08-08] MEDS: KETOROLAC TROMETHAMINE 15 MG/ML VIAL IV SCH ×3 (02:20→14:25)
[2019-08-08 06:30] LABS: Basophils # (auto) 0.02 K/uL (0-0.2); Basophils % (auto) 0.2 %; Eosinophils # (auto) 0.19 K/uL (0-0.5); Eosinophils % (auto) 1.8 %; Hematocrit (blood only) 37.9 % (42-52); Hemoglobin 12.8 g/dL (14.0-18.0); Immature Granulocytes # (auto) 0.04 K/uL (0.00-0.02); Immature Granulocytes % (auto) 0.4 %; Lymphocytes # (auto) 1.46 K/uL (1.2-3.4); Lymphocytes % (auto) 13.6 %; Mean Corpuscular Hemoglobin 32.6 pg (25-34); Mean Corpuscular Hgb Conc 33.8 g/dL (32-36); Mean Corpuscular Volume 96.4 fL (80-100); Mean Platelet Volume 9.6 fL (7.4-10.4); Monocytes # (auto) 1.31 K/uL (0.11-0.59); Monocytes % (auto) 12.2 %; Neutrophils # (auto) 7.74 K/uL (1.4-6.5); Neutrophils % (auto) 71.8 %; Platelet Count 170 K/uL (130-400); RDW Coefficient of Variation 12.6 % (11.5-14.5); RDW Standard Deviation 44.7 fL (36.4-46.3); Red Blood Count 3.93 M/uL (4.7-6.1); White Blood Count 10.76 K/uL (4.8-10.8)
[2019-08-08] MEDS: ACETAMINOPHEN 500 MG TAB PO SCH ×3 (06:36→20:54)
[2019-08-08] MEDS: CEFAZOLIN 2000MG 2,000 MG/15 ML SYR IV SCH (06:37)
[2019-08-08 07:08] LABS: BUN Creatinine Ratio 11.6 (10-20); Calcium 8.7 mg/dl (8.5-10.1); Creatinine Clr Calc Pharmacy 53.9 ml/min; Est GFR (African American) 58.2; Est GFR (Non-African American) 50.2
--- NOTE | 2019-08-08 07:26 | Orthopedic Progress Note ---
Date of Service August 08, 2019 Assessment & Plan (1) Transcervical fracture of right femur: POD #1 s/p Right Hip Bipolar Hemiarthroplasty pt/ot- WBAT dvt proph with ward/scd/asa we discussed d/c options will see how he performs in PT, may need short rehab stay Subjective POD #1 s/p Right Hip Bipolar Hemiarthroplasty Review of Systems Review of Systems: All systems reviewed & are unremarkable except as noted in HPI & below Constitutional: no fever and no chills Respiratory: no cough and no dyspnea Cardiovascular: no chest pain, no dyspnea and no orthopnea Gastrointestinal: no nausea and no vomiting Physical Exam Physical Exam: Vital Signs Temp Pulse Pulse Pulse Resp BP BP 08/08/19 03:06 36.6 C 78 16 116/68 08/08/19 01:06 114/68 08/07/19 23:10 36.3 C L 82 16 102/68 08/07/19 22:10 95 H 18 127/73 08/07/19 21:17 36.2 C L 98 H 16 134/76 08/07/19 20:43 36.4 C L 93 H 16 154/82 H 08/07/19 20:20 08/07/19 19:55 37.0 C 93 H 20 08/07/19 19:45 87 19 08/07/19 19:35 103 H 18 129/72 08/07/19 19:25 97 H 20 123/67 08/07/19 19:15 87 18 118/58 L 08/07/19 19:05 70 18 110/59 L 08/07/19 18:59 37.2 C 62 18 95/59 L 08/07/19 14:06 37.1 C 91 H 18 143/77 H BP Pulse Ox Pulse Ox 08/08/19 03:06 96 08/08/19 01:06 08/07/19 23:10 97 08/07/19 22:10 96 08/07/19 21:17 95 08/07/19 20:43 93 08/07/19 20:20 94 08/07/19 19:55 178/82 H 92 08/07/19 19:45 172/86 H 90 08/07/19 19:35 92 08/07/19 19:25 91 08/07/19 19:15 86 L 08/07/19 19:05 97 08/07/19 18:59 97 08/07/19 14:06 91 Intake and Output 08/07/19 08/08/19 08/08/19 22:59 06:59 14:59 Intake Total 1950 / 3215 300 / 3215 Output Total 50 / 1325 475 / 1325 Balance 1900 / 1890 -175 / 0 Intake: IV 900 / 1865 Lr 1,000 ml @ 100 mls/hr IV . 900 / 1865 Q10H OMEGA Rx#:[id number] IV Perioperative 900 / 900 Oral 150 / 450 300 / 450 Output: Urine 475 / 1275 Estimated Blood Loss 50 / 50 Other: Weight 93.3 kg Constitutional: WD/WN, vitals as above no acute distress Musculoskeletal: right leg: hip dressing clean and dry, NVDI. calf soft, non- tender, able to wiggle toes/ankle without difficulty. there is some mild tenderness anterior thigh Results & Data Vital Signs (Past 12 Hours) Vital Signs Temp Pulse Pulse Resp BP BP BP 08/08/19 03:06 36.6 C 78 16 116/68 08/08/19 01:06 114/68 08/07/19 23:10 36.3 C L 82 16 102/68 08/07/19 22:10 95 H 18 127/73 08/07/19 21:17 36.2 C L 98 H 16 134/76 08/07/19 20:43 36.4 C L 93 H 16 154/82 H 08/07/19 20:20 08/07/19 19:55 37.0 C 93 H 20 178/82 H 08/07/19 19:45 87 19 172/86 H 08/07/19 19:35 103 H 18 129/72 Pulse Ox Pulse Ox 08/08/19 03:06 96 08/08/19 01:06 08/07/19 23:10 97 08/07/19 22:10 96 08/07/19 21:17 95 08/07/19 20:43 93 08/07/19 20:20 94 08/07/19 19:55 92 08/07/19 19:45 90 08/07/19 19:35 92 Laboratory Results Laboratory Results WBC 10.76 K/uL (4.8-10.8) 08/08/19 06:06 RBC 3.93 M/uL (4.7-6.1) L 08/08/19 06:06 Hgb 12.8 g/dL (14.0-18.0) L 08/08/19 06:06 Hct 37.9 % (42-52) L 08/08/19 06:06 MCV 96.4 fL (80-100) 08/08/19 06:06 MCH 32.6 pg (25-34) 08/08/19 06:06 MCHC 33.8 g/dL (32-36) 08/08/19 06:06 RDW Std Deviation 44.7 fL (36.4-46.3) 08/08/19 06:06 RDW Coeff of Amari 12.6 % (11.5-14.5) 08/08/19 06:06 Plt Count 170 K/uL (130-400) 08/08/19 06:06 MPV 9.6 fL (7.4-10.4) 08/08/19 06:06 Immature Gran % (Auto) 0.4 % 08/08/19 06:06 Neut % (Auto) 71.8 % 08/08/19 06:06 Lymph % (Auto) 13.6 % 08/08/19 06:06 [place] % (Auto) 12.2 % 08/08/19 06:06 Eos % (Auto) 1.8 % 08/08/19 06:06 Baso % (Auto) 0.2 % 08/08/19 06:06 Immature Gran # (Auto) 0.04 K/uL (0.00-0.02) H 08/08/19 06:06 Neut # (Auto) 7.74 K/uL (1.4-6.5) H 08/08/19 06:06 Lymph # (Auto) 1.46 K/uL (1.2-3.4) 08/08/19 06:06 [place] # (Auto) 1.31 K/uL (0.11-0.59) H 08/08/19 06:06 Eos # (Auto) 0.19 K/uL (0-0.5) 08/08/19 06:06 Baso # (Auto) 0.02 K/uL (0-0.2) 08/08/19 06:06 PT 11.3 Seconds (9.0-12.0) 08/07/19 11:57 INR 1.1 (0.9-1.1) 08/07/19 11:57 APTT Cancelled 08/06/19 12:57 PTT Ratio Cancelled 08/06/19 12:57 Sodium 139 mmol/L (136-145) 08/08/19 06:06 Potassium mmol/L (3.5-5.1) 08/08/19 06:06 Chloride 105 mmol/L (98-107) 08/08/19 06:06 Carbon Dioxide 30 mmol/L (21-32) 08/08/19 06:06 Anion Gap 5.0 (3-11) 08/08/19 06:06 BUN 16 mg/dl (7-18) 08/08/19 06:06 Creatinine 1.36 mg/dl (0.6-1.4) 08/08/19 06:06 Est Cr Clr Drug Dosing 53.9 ml/min 08/08/19 06:06 Est GFR ( Amer) 58.2 08/08/19 06:06 Est GFR (Non-Af Amer) 50.2 08/08/19 06:06 BUN/Creatinine Ratio 11.6 (10-20) 08/08/19 06:06 Glucose 145 mg/dl (70-99) H 08/08/19 06:06 POC Glucose 133 (70-99) H 08/07/19 20:37 Calcium 8.7 mg/dl (8.5-10.1) 08/08/19 06:06 Magnesium mg/dl (1.8-2.4) 08/08/19 06:06 Total Bilirubin 0.7 mg/dl (0.2-1) 08/06/19 12:57 AST 16 U/L (15-37) 08/06/19 12:57 ALT 24 U/L (12-78) 08/06/19 12:57 Alkaline Phosphatase 61 U/L (45-117) 08/06/19 12:57 Total Protein 7.9 gm/dl (6.4-8.2) 08/06/19 12:57 Albumin 4.2 gm/dl (3.4-5.0) 08/06/19 12:57 Globulin 3.7 gm/dl (2.5-4.0) 01/02/20 12:57 Albumin/Globulin Ratio 1.1 (0.9-2) 08/06/19 12:57 Blood Type AB Positive 08/06/19 16:33 Antibody Screen NEGATIVE 08/06/19 16:33 Diagnostic Findings AP PELVIS, CROSSTABLE LATERAL RIGHT HIP History: Right hip hemiarthroplasty. Right hip fracture. Postop. FINDINGS: The patient is status post a right hip hemiarthroplasty. The hardware is intact. No fracture or dislocation. Skin soo and surgical drains are in place. IMPRESSION: Right hip hemiarthroplasty. No evidence for hardware complication
[2019-08-08 08:05] LABS: Potassium 4.1 mmol/L (3.5-5.1)
[2019-08-08 08:06] LABS: Magnesium 1.7 mg/dl (1.8-2.4)
[2019-08-08] MEDS: LACTATED RINGER'S 1,000 ML IV SCH (09:03)
[2019-08-08] MEDS: FERROUS GLUCONATE 324 MG TAB PO SCH ×2 (09:12→16:21)
[2019-08-08] MEDS: MULTIVITAMIN TAB PO SCH (09:13)
[2019-08-08] MEDS: DOCUSATE SODIUM 100 MG CAP PO SCH ×2 (09:13→20:40)
[2019-08-08] MEDS: INSULIN ASPART 100 UNITS/ML 3 ML PEN SC SCH ×5 (09:15→21:04)
[2019-08-08] MEDS ORDERED: MAGNESIUM SULFATE / D5W 1 GM/100 ML BAG IV ONE (10:00)
--- NOTE | 2019-08-08 18:44 | Hospitalist Progress Note ---
Date of Service August 08, 2019 Assessment & Plan (1) Femur fracture, right: Patient is a 78-year-old male with H/O Type 2 diabetes and smokeless tobacco use who presents after fall this afternoon and was found to have acute fracture of right femur. Right hip fracture S/P Mechanical fall in setting of peripheral neuropathy Hip X ray:Acute transcervical fracture of the right femur with mild impaction and mild apex superior angulation. S/P right hip bipolar hemiarthroplasty POD #1 Weightbearing as tolerated Pain control Appreciate orthopedics input Bowel regimen to prevent constipation Monitor for postop anemia Wound care as per Ortho. PT/OT May need rehab placement (2) Diabetes mellitus, type II: A1c 5.7 in Jul 2019 Hold home agents Continue insulin sliding scale while hospitalized Monitor blood glucose levels (3) Tobacco use: Daily smokeless tobacco use Counseled Cessation DVT Px: on ASA BID Code status: FULL Disposition May need Rehab placement Subjective Patient is seen and examined at bedside States having significant right hip pain with weightbearing, ambulation + Flatus, no bowel movement yet Denies any nausea, vomiting, abdominal pain Family at bedside Had PT OT eval today Also denies any chest pain, SOB, dizziness Review of Systems Review of Systems: All systems reviewed & are unremarkable except as noted in HPI & below Physical Exam Physical Exam: Physical Exam: Vitals signs as noted above General Appearance:Moderately built and nourished, no apparent distress Head: normocephalic, Atraumatic Eyes: normal inspection, EOMI Neck: supple, Trachea midline Respiratory/Chest: Normal breath sounds, CTA Cardiovascular: S1, S2, No murmur Abdomen/GI:Soft, Non tender, Bowel sounds present Extremities/Musculoskelatal:normal inspection, no edema, R hip surgical site in dressing Neurologic/Psych:AAOX3, grossly no focal neurological deficits Skin: normal color, warm Results & Data Vital Signs (Past 12 Hours) Vital Signs Temp Pulse Resp BP BP Pulse Ox 08/08/19 15:01 36.9 C 97 H 18 118/68 92 08/08/19 14:23 91 08/08/19 07:35 37.1 C 99 H 18 120/70 93 Laboratory Results Short CBC 08/08/19 Range/Units 06:06 WBC 10.76 (4.8-10.8) K/uL Hgb 12.8 L (14.0-18.0) g/dL Hct 37.9 L (42-52) % Plt Count 170 (130-400) K/uL BMP 08/08/19 08/08/19 06:06 07:23 Sodium 139 Potassium 4.1 Chloride 105 Carbon Dioxide 30 BUN 16 Creatinine 1.36 Glucose 145 H Calcium 8.7
[2019-08-08] MEDS: SENNA 8.6 MG TAB PO SCH (20:55)
[2019-08-08] MEDS: DOCUSATE SODIUM/SENNA 50/8.6MG TAB PO SCH (20:55)
[2019-08-08] MEDS: ASPIRIN 81 MG ECTAB PO SCH (20:56)
[2019-08-09] MEDS: ACETAMINOPHEN 500 MG TAB PO SCH ×3 (05:53→21:07)
[2019-08-09 06:36] LABS: Basophils # (auto) 0.02 K/uL (0-0.2); Basophils % (auto) 0.2 %; Eosinophils # (auto) 0.17 K/uL (0-0.5); Eosinophils % (auto) 1.6 %; Hematocrit (blood only) 32.6 % (42-52); Hemoglobin 11.1 g/dL (14.0-18.0); Immature Granulocytes # (auto) 0.02 K/uL (0.00-0.02); Immature Granulocytes % (auto) 0.2 %; Lymphocytes # (auto) 1.33 K/uL (1.2-3.4); Lymphocytes % (auto) 12.4 %; Mean Corpuscular Hemoglobin 33.2 pg (25-34); Mean Corpuscular Volume 97.6 fL (80-100); Mean Platelet Volume 9.3 fL (7.4-10.4); Monocytes # (auto) 1.51 K/uL (0.11-0.59); Neutrophils # (auto) 7.71 K/uL (1.4-6.5); Neutrophils % (auto) 71.6 %; Platelet Count 154 K/uL (130-400); RDW Coefficient of Variation 12.6 % (11.5-14.5); RDW Standard Deviation 44.7 fL (36.4-46.3); Red Blood Count 3.34 M/uL (4.7-6.1); White Blood Count 10.76 K/uL (4.8-10.8)
[2019-08-09 07:09] LABS: BUN Creatinine Ratio 12.7 (10-20); Calcium 8.9 mg/dl (8.5-10.1); Creatinine Clr Calc Pharmacy 55.1 ml/min; Est GFR (African American) 59.8; Est GFR (Non-African American) 51.6; Magnesium 2.2 mg/dl (1.8-2.4); Potassium 4.1 mmol/L (3.5-5.1)
--- NOTE | 2019-08-09 07:15 | Orthopedic Progress Note ---
Date of Service August 09, 2019 Assessment & Plan (1) Transcervical fracture of right femur: POD #2 s/p Right Hip Bipolar Hemiarthroplasty pt/ot- WBAT dvt proph with ward/scd/asa awaiting approval for [facility] d/c hemovac this am Subjective POD #2 s/p right hip bipolar hemiarthroplasty Review of Systems Constitutional: no fever and no chills Respiratory: no cough Cardiovascular: no chest pain, no dyspnea and no orthopnea Gastrointestinal: no nausea and no vomiting Physical Exam Physical Exam: Vital Signs Temp Pulse Resp BP BP Pulse Ox Pulse Ox 08/09/19 04:39 98 08/09/19 00:00 98 08/08/19 23:09 36.6 C 103 H 16 114/68 91 08/08/19 15:01 36.9 C 97 H 18 118/68 92 08/08/19 14:23 91 08/08/19 07:35 37.1 C 99 H 18 120/70 93 Intake and Output 08/08/19 08/09/19 08/09/19 22:59 06:59 14:59 Intake Total 650 / 2540 Output Total 0 / 1481 1055 / 1481 Balance 650 / 1059 -1055 / 1059 Intake: Oral 650 / 1440 Output: Urine 1050 / 1251 Drain Output 0 / 230 5 / 230 Right Hip Hemo vac 0 / 230 5 / 230 Other: # Unmeasured Voi ds 3 Constitutional: WD/WN, vitals as above Musculoskeletal: right hip: silverlon dressing in place, no surrounding erythema, thigh soft, calf soft and non tender, negative sharath. DP +2 Results & Data Vital Signs (Past 12 Hours) Vital Signs Temp Pulse Resp BP Pulse Ox Pulse Ox 08/09/19 04:39 98 08/09/19 00:00 98 08/08/19 23:09 36.6 C 103 H 16 114/68 91 Laboratory Results Laboratory Results WBC 10.76 K/uL (4.8-10.8) 08/09/19 06:14 RBC 3.34 M/uL (4.7-6.1) L 08/09/19 06:14 Hgb 11.1 g/dL (14.0-18.0) L 08/09/19 06:14 Hct 32.6 % (42-52) L 08/09/19 06:14 MCV 97.6 fL (80-100) 08/09/19 06:14 MCH 33.2 pg (25-34) 08/09/19 06:14 MCHC 34.0 g/dL (32-36) 08/09/19 06:14 RDW Std Deviation 44.7 fL (36.4-46.3) 08/09/19 06:14 RDW Coeff of Amari 12.6 % (11.5-14.5) 08/09/19 06:14 Plt Count 154 K/uL (130-400) 08/09/19 06:14 MPV 9.3 fL (7.4-10.4) 08/09/19 06:14 Immature Gran % (Auto) 0.2 % 08/09/19 06:14 Neut % (Auto) 71.6 % 08/09/19 06:14 Lymph % (Auto) 12.4 % 08/09/19 06:14 [place] % (Auto) 14.0 % 08/09/19 06:14 Eos % (Auto) 1.6 % 08/09/19 06:14 Baso % (Auto) 0.2 % 08/09/19 06:14 Immature Gran # (Auto) 0.02 K/uL (0.00-0.02) 08/09/19 06:14 Neut # (Auto) 7.71 K/uL (1.4-6.5) H 08/09/19 06:14 Lymph # (Auto) 1.33 K/uL (1.2-3.4) 08/09/19 06:14 [place] # (Auto) 1.51 K/uL (0.11-0.59) H 08/09/19 06:14 Eos # (Auto) 0.17 K/uL (0-0.5) 08/09/19 06:14 Baso # (Auto) 0.02 K/uL (0-0.2) 08/09/19 06:14 PT 11.3 Seconds (9.0-12.0) 08/07/19 11:57 INR 1.1 (0.9-1.1) 08/07/19 11:57 APTT Cancelled 08/06/19 12:57 PTT Ratio Cancelled 08/06/19 12:57 Sodium 137 mmol/L (136-145) 08/09/19 06:14 Potassium 4.1 mmol/L (3.5-5.1) 08/09/19 06:14 Chloride 104 mmol/L (98-107) 08/09/19 06:14 Carbon Dioxide 29 mmol/L (21-32) 08/09/19 06:14 Anion Gap 4.0 (3-11) 08/09/19 06:14 BUN 17 mg/dl (7-18) 08/09/19 06:14 Creatinine 1.33 mg/dl (0.6-1.4) 08/09/19 06:14 Est Cr Clr Drug Dosing 55.1 ml/min 08/09/19 06:14 Est GFR ( Amer) 59.8 08/09/19 06:14 Est GFR (Non-Af Amer) 51.6 08/09/19 06:14 BUN/Creatinine Ratio 12.7 (10-20) 08/09/19 06:14 Glucose 147 mg/dl (70-99) H 08/09/19 06:14 POC Glucose 183 (70-99) H 08/08/19 20:33 Calcium 8.9 mg/dl (8.5-10.1) 08/09/19 06:14 Magnesium 2.2 mg/dl (1.8-2.4) 08/09/19 06:14 Total Bilirubin 0.7 mg/dl (0.2-1) 08/06/19 12:57 AST 16 U/L (15-37) 08/06/19 12:57 ALT 24 U/L (12-78) 08/06/19 12:57 Alkaline Phosphatase 61 U/L (45-117) 08/06/19 12:57 Total Protein 7.9 gm/dl (6.4-8.2) 08/06/19 12:57 Albumin 4.2 gm/dl (3.4-5.0) 08/06/19 12:57 Globulin 3.7 gm/dl (2.5-4.0) 08/06/19 12:57 Albumin/Globulin Ratio 1.1 (0.9-2) 08/06/19 12:57 Blood Type AB Positive 08/06/19 16:33 Antibody Screen NEGATIVE 08/06/19 16:33
[2019-08-09] MEDS: FERROUS GLUCONATE 324 MG TAB PO SCH ×2 (08:42→18:01)
[2019-08-09] MEDS: ASPIRIN 81 MG ECTAB PO SCH ×2 (08:42→20:35)
[2019-08-09] MEDS: DOCUSATE SODIUM 100 MG CAP PO SCH ×2 (08:42→20:35)
[2019-08-09] MEDS: MULTIVITAMIN TAB PO SCH (08:42)
[2019-08-09] MEDS: INSULIN ASPART 100 UNITS/ML 3 ML PEN SC SCH ×4 (08:43→21:06)
[2019-08-09] MEDS: OXYCODONE HCL IR 5 MG TAB (IMMEDIATE RELEASE) PO PRN ×2 (08:54→20:34)
--- NOTE | 2019-08-09 16:31 | Hospitalist Progress Note ---
Date of Service August 09, 2019 Assessment & Plan (1) Femur fracture, right: Patient is a 78-year-old male with H/O Type 2 diabetes and smokeless tobacco use who presents after fall this afternoon and was found to have acute fracture of right femur. Right hip fracture S/P Mechanical fall in setting of peripheral neuropathy Hip X ray:Acute transcervical fracture of the right femur with mild impaction and mild apex superior angulation. S/P right hip bipolar hemiarthroplasty POD #2 Weightbearing as tolerated Pain control Appreciate orthopedics input Bowel regimen to prevent constipation Monitor for postop anemia Wound care as per Ortho. PT/OT May need rehab placement Continue current management (2) Diabetes mellitus, type II: A1c 5.7 in Jul 2019 Hold home agents Continue insulin sliding scale while hospitalized Monitor blood glucose levels (3) Tobacco use: Daily smokeless tobacco use Counseled Cessation DVT Px: on ASA BID Code status: FULL Disposition May need Rehab placement Case management for discharge plan Subjective Patient is seen and examined at bedside Right hip pain is controlled No new complaints Denies chest pain, SOB, dizziness, nausea, vomiting, abdominal pain Review of Systems Review of Systems: All systems reviewed & are unremarkable except as noted in HPI & below Physical Exam Physical Exam: Physical Exam: Vitals signs as noted above General Appearance:Moderately built and nourished, no apparent distress Head: normocephalic, Atraumatic Eyes: normal inspection, EOMI Neck: supple, Trachea midline Respiratory/Chest: Normal breath sounds, CTA Cardiovascular: S1, S2, No murmur Abdomen/GI:Soft, Non tender, Bowel sounds present Extremities/Musculoskelatal:normal inspection, no edema, R hip + dressing Neurologic/Psych:AAOX3, grossly no focal neurological deficits Skin: normal color, warm Results & Data Vital Signs (Past 12 Hours) Vital Signs Temp Pulse Resp BP Pulse Ox Pulse Ox 08/09/19 15:03 37.2 C 97 H 18 112/62 93 08/09/19 08:04 36.6 C 90 16 124/78 93 08/09/19 04:39 98 Laboratory Results Short CBC 08/09/19 Range/Units 06:14 WBC 10.76 (4.8-10.8) K/uL Hgb 11.1 L (14.0-18.0) g/dL Hct 32.6 L (42-52) % Plt Count 154 (130-400) K/uL BMP 08/09/19 06:14 Sodium 137 Potassium 4.1 Chloride 104 Carbon Dioxide 29 BUN 17 Creatinine 1.33 Glucose 147 H Calcium 8.9
[2019-08-09] MEDS: DOCUSATE SODIUM/SENNA 50/8.6MG TAB PO SCH (20:35)
[2019-08-09] MEDS: SENNA 8.6 MG TAB PO SCH (20:36)
[2019-08-10 05:35] LABS: Hematocrit (blood only) 33.9 % (42-52); Hemoglobin 11.4 g/dL (14.0-18.0)
[2019-08-10] MEDS: ACETAMINOPHEN 500 MG TAB PO SCH ×3 (05:59→21:04)
--- NOTE | 2019-08-10 08:07 | Operative Report ---
DATE OF OPERATION: 08/07/2019 PREOPERATIVE DIAGNOSIS: Right acute displaced femoral neck fracture. POSTOPERATIVE DIAGNOSIS: Right acute displaced femoral neck fracture. PROCEDURE: Right hip bipolar hemiarthroplasty with a Kaleb V40 femoral head 26 x +0 mm of neck length, a UHR universal head bipolar component 54 mm outer diameter with a 26 mm inner diameter, Accolade II press-fit size 6 femoral stem. SURGEON: Efren Reddy DO [employer]ATBUILDER WOOD: Florencio ALLISON, who was present for patient positioning, sterile prep and drape, management of retractors and instruments. He was present through the critical portions of the case including wound closure, application of sterile dressing and transport of the patient to recovery. ANESTHESIA: Spinal with sedation. SPECIMENS: Bone and tissue, right hip. DRAINS: Hemovac x2. COMPLICATIONS: None. BLOOD LOSS: 50 mL. PERTINENT HISTORY: This is a 78-year-old gentleman who was attempting to work on a garage door that fell firmly on to his right hip sustaining a hip fracture, admitted to the hospital, stabilized for surgery and then scheduled for surgery as indicated. All potential risks, benefits, complications, alternatives, rehab, potential for incomplete relief of symptoms, need for further surgery, DVT, PE, , persistent pain, swelling, scarring, weakness, neurovascular injury, wound complications, hardware failure, nonunion, malunion and bone fracture were discussed with the patient. The patient decided to proceed with the procedure as indicated. DESCRIPTION OF PROCEDURE: The patient was taken to the operative suite and placed supine on the Operating Room table. After review of the consent, identification of proper operative site, the patient was sedated. Spinal anesthetic was administered without difficulty. The patient was then placed in a left lateral decubitus position with the affected side up. Stulberg positioning pads were placed on the OR table. All bony prominences were properly padded and protected including use of an axillary roll. After the right hip was then sterilely prepped and draped in usual fashion, a 10 blade scalpel incision was made centered over the anterior one third of the greater trochanter. The incision was deepened to subcutaneous tissue. Meticulous hemostasis with electrocautery. Full thickness skin flaps were developed. Care was taken to cauterize any small punctate bleeders with a Bovie. Next, the iliotibial band was then incised along the skin incision, retracted both anteriorly and posteriorly using a Charnley retractor over moistened surgical towels. Next, abductor split was made over the neck and head of the femur down to the level of the trochanter and then this was carried around the greater trochanter and then down the shaft of the femur via the vastus lateralis. All soft tissues were then sharply elevated with electrocautery anteriorly including the gluteus medius, the gluteus millicent, the capsule and then the vastus lateralis. The fractured femoral neck was clearly identified and then a sagittal saw was used to resect the proximal neck cut without any difficulty approximately one fingerbreadth proximal to the lesser trochanter. Next, the femoral head was extracted from the acetabulum and measured to be approximately 53 mm in diameter. A 53 mm trial was placed with appropriate retractors around the acetabulum, noted to have excellent fit and stability. Then box osteotome and trial reamer placed in the proximal femur followed by sequential upbroaching until a size 11 was firmly placed. Next, the calcar reamer was utilized to smooth the proximal femur followed by placement of a - 3.5 mm neck, 135 neck angle and a 53 mm outer diameter trial. This was reduced and noted to have excellent stability and range of motion. Leg lengths were reapproximated to neutral and then all trial implants were then removed. Pulsatile lavage with 3 liters of the solution was used to lavaged the femur, acetabulum and then all soft tissues. Next, final implant of a size 11 Juan ML taper femoral implant with a 132 neck angle -3 site with a standard offset was implanted without difficulty and a 28 mm Sarona chrome head -3.5 length and a 53 mm inner diameter, 53 mm outer diameter bipolar head was then placed. The acetabulum was then suctioned, reduced. Excellent range of motion and recreation of leg length was achieved. Shuck test was nearly perfect. The leg lengths were restored. Excellent stability. Next, pulsatile lavage was used to cleanse the deep capsule and all soft tissues. Next a #5 Tycron was placed through the greater trochanter and sutured through the anterior capsule, gluteus minimus and then into the gluteus medius and then sutured back to the greater trochanter with two deep Hemovac drains placed. Suture was then tied and cut followed by two [id number] sutures of #5 Tycron in the proximal capsule. Next, the vastus lateralis was then closed using interrupted #1 Vicryl. The gluteus millicent was closed using #1 Vicryl. The iliotibial band was closed using #1 Vicryl. The wound was copiously irrigated with pulsatile lavage and then the dermis was closed using buried interrupted 2-0 Vicryl. Skin was closed using skin soo. A sterile compressive dressing was applied overwrapped with foam tape. The patient was then awakened and taken to recovery in stable condition with an abductor pillow. I attest to the content of the Intraoperative Record and any orders documented therein. Any exception s are noted below.
--- NOTE | 2019-08-10 08:26 | Orthopedic Progress Note ---
Date of Service August 10, 2019 Assessment & Plan (1) Transcervical fracture of right femur: POD #3 s/p Right Hip Bipolar Hemiarthroplasty pt/ot- WBAT dvt proph with ward/scd/asa awaiting approval for [facility] versus intermediate facility Instructions placed in the E HR discharge section. Ortho will sign off at this time. Please call with any questions. Subjective Postop day 3 status post right bipolar hemiarthroplasty Patient is sleeping upon arrival but easily awoken. States his pain is controlled at this time and he denies any shortness of breath, chest pain, lightheadedness. He states he does have pain with ambulation. No other complaints at this time. He feels he would like to go home with possible home health services however patient's ambulation currently is minimal. Discussed possibly going to [facility] for short rehab stay prior to returning home. Physical Exam Physical Exam: Silverlon dressing is intact and dry. Mild to moderate drainage noted on the window but no drainage seeping out of the dressing. Thigh has some mild swelling but is soft. Calves are soft nontender. Neurovascular is intact. Toes are mobile. Leg lengths appear equal. Results & Data Vital Signs (Past 12 Hours) Vital Signs Temp Pulse Resp BP Pulse Ox 08/10/19 07:46 36.8 C 81 16 120/73 92 08/09/19 22:55 36.8 C 100 H 16 118/74 92 Laboratory Results Laboratory Results WBC 10.76 K/uL (4.8-10.8) 08/09/19 06:14 RBC 3.34 M/uL (4.7-6.1) L 08/09/19 06:14 Hgb 11.4 g/dL (14.0-18.0) L 08/10/19 04:56 Hct 33.9 % (42-52) L 08/10/19 04:56 MCV 97.6 fL (80-100) 08/09/19 06:14 MCH 33.2 pg (25-34) 08/09/19 06:14 MCHC 34.0 g/dL (32-36) 08/09/19 06:14 RDW Std Deviation 44.7 fL (36.4-46.3) 08/09/19 06:14 RDW Coeff of Amari 12.6 % (11.5-14.5) 08/09/19 06:14 Plt Count 154 K/uL (130-400) 08/09/19 06:14 MPV 9.3 fL (7.4-10.4) 08/09/19 06:14 Immature Gran % (Auto) 0.2 % 08/09/19 06:14 Neut % (Auto) 71.6 % 08/09/19 06:14 Lymph % (Auto) 12.4 % 08/09/19 06:14 [place] % (Auto) 14.0 % 08/09/19 06:14 Eos % (Auto) 1.6 % 08/09/19 06:14 Baso % (Auto) 0.2 % 08/09/19 06:14 Immature Gran # (Auto) 0.02 K/uL (0.00-0.02) 08/09/19 06:14 Neut # (Auto) 7.71 K/uL (1.4-6.5) H 08/09/19 06:14 Lymph # (Auto) 1.33 K/uL (1.2-3.4) 08/09/19 06:14 [place] # (Auto) 1.51 K/uL (0.11-0.59) H 08/09/19 06:14 Eos # (Auto) 0.17 K/uL (0-0.5) 08/09/19 06:14 Baso # (Auto) 0.02 K/uL (0-0.2) 08/09/19 06:14 PT 11.3 Seconds (9.0-12.0) 08/07/19 11:57 INR 1.1 (0.9-1.1) 08/07/19 11:57 APTT Cancelled 08/06/19 12:57 PTT Ratio Cancelled 08/06/19 12:57 Sodium 137 mmol/L (136-145) 08/09/19 06:14 Potassium 4.1 mmol/L (3.5-5.1) 08/09/19 06:14 Chloride 104 mmol/L (98-107) 08/09/19 06:14 Carbon Dioxide 29 mmol/L (21-32) 08/09/19 06:14 Anion Gap 4.0 (3-11) 08/09/19 06:14 BUN 17 mg/dl (7-18) 08/09/19 06:14 Creatinine 1.33 mg/dl (0.6-1.4) 08/09/19 06:14 Est Cr Clr Drug Dosing 55.1 ml/min 08/09/19 06:14 Est GFR ( Amer) 59.8 08/09/19 06:14 Est GFR (Non-Af Amer) 51.6 08/09/19 06:14 BUN/Creatinine Ratio 12.7 (10-20) 08/09/19 06:14 Glucose 147 mg/dl (70-99) H 08/09/19 06:14 POC Glucose 181 (70-99) H 08/09/19 20:51 Calcium 8.9 mg/dl (8.5-10.1) 08/09/19 06:14 Magnesium 2.2 mg/dl (1.8-2.4) 08/09/19 06:14 Total Bilirubin 0.7 mg/dl (0.2-1) 08/06/19 12:57 AST 16 U/L (15-37) 08/06/19 12:57 ALT 24 U/L (12-78) 08/06/19 12:57 Alkaline Phosphatase 61 U/L (45-117) 08/06/19 12:57 Total Protein 7.9 gm/dl (6.4-8.2) 08/06/19 12:57 Albumin 4.2 gm/dl (3.4-5.0) 08/06/19 12:57 Globulin 3.7 gm/dl (2.5-4.0) 08/06/19 12:57 Albumin/Globulin Ratio 1.1 (0.9-2) 08/06/19 12:57 Blood Type AB Positive 08/06/19 16:33 Antibody Screen NEGATIVE 08/06/19 16:33
[2019-08-10] MEDS: FERROUS GLUCONATE 324 MG TAB PO SCH ×2 (08:37→18:21)
[2019-08-10] MEDS: MULTIVITAMIN TAB PO SCH (08:37)
[2019-08-10] MEDS: DOCUSATE SODIUM 100 MG CAP PO SCH ×2 (08:37→21:04)
[2019-08-10] MEDS: ASPIRIN 81 MG ECTAB PO SCH ×2 (08:38→21:04)
[2019-08-10] MEDS: INSULIN ASPART 100 UNITS/ML 3 ML PEN SC SCH ×4 (08:39→21:06)
[2019-08-10] MEDS: OXYCODONE HCL IR 5 MG TAB (IMMEDIATE RELEASE) PO PRN (10:11)
--- NOTE | 2019-08-10 15:23 | Hospitalist Progress Note ---
Date of Service August 10, 2019 Assessment & Plan (1) Femur fracture, right: Patient is a 78-year-old male with H/O Type 2 diabetes and smokeless tobacco use who presents after fall this afternoon and was found to have acute fracture of right femur. Right hip fracture S/P Mechanical fall in setting of peripheral neuropathy Hip X ray:Acute transcervical fracture of the right femur with mild impaction and mild apex superior angulation. S/P right hip bipolar hemiarthroplasty POD #3 Weightbearing as tolerated Pain is controlled Appreciate orthopedics input Bowel regimen to prevent constipation Monitor for postop anemia Wound care as per Ortho. PT/OT Needs rehab placement Plan to discharge to rehab facility when accepted (2) Diabetes mellitus, type II: A1c 5.7 in Jul 2019 Hold home agents Continue insulin sliding scale while hospitalized Monitor blood glucose levels (3) Tobacco use: Daily smokeless tobacco use Counseled Cessation DVT Px: on ASA BID Code status: FULL Disposition Rehab facility when accepted Case management for discharge plan Subjective Patient is seen and examined at bedside Right hip pain is better Had bowel movement Patient is able to bear weight on right hip with ambulation today Waiting for rehab placement Denies chest pain, SOB, dizziness, nausea, vomiting, abdominal pain Family at bedside Review of Systems Review of Systems: All systems reviewed & are unremarkable except as noted in HPI & below Physical Exam Physical Exam: Physical Exam: Vitals signs as noted above General Appearance:Moderately built and nourished, no apparent distress Head: normocephalic, Atraumatic Eyes: normal inspection, EOMI Neck: supple, Trachea midline Respiratory/Chest: Normal breath sounds, CTA Cardiovascular: S1, S2, No murmur Abdomen/GI:Soft, Non tender, Bowel sounds present Extremities/Musculoskelatal:normal inspection, no edema, R hip + dressing Neurologic/Psych:AAOX3, grossly no focal neurological deficits Skin: normal color, warm Results & Data Vital Signs (Past 12 Hours) Vital Signs Temp Pulse Resp BP Pulse Ox 08/10/19 15:17 37 C 93 H 16 107/57 L 92 08/10/19 07:46 36.8 C 81 16 120/73 92 Laboratory Results Short CBC 08/10/19 Range/Units 04:56 Hgb 11.4 L (14.0-18.0) g/dL Hct 33.9 L (42-52) %
[2019-08-10] MEDS: SENNA 8.6 MG TAB PO SCH (21:04)
[2019-08-11] MEDS: OXYCODONE HCL IR 5 MG TAB (IMMEDIATE RELEASE) PO PRN ×3 (03:17→13:48)
[2019-08-11] MEDS: ACETAMINOPHEN 500 MG TAB PO SCH ×2 (05:26→12:44)
[2019-08-11] MEDS: MULTIVITAMIN TAB PO SCH (08:38)
[2019-08-11] MEDS: FERROUS GLUCONATE 324 MG TAB PO SCH (08:38)
[2019-08-11] MEDS: DOCUSATE SODIUM 100 MG CAP PO SCH (08:38)
[2019-08-11] MEDS: ASPIRIN 81 MG ECTAB PO SCH (08:38)
[2019-08-11] MEDS: INSULIN ASPART 100 UNITS/ML 3 ML PEN SC SCH ×2 (08:38→12:43)
[2019-08-11 08:43] LABS: Hematocrit (blood only) 32.2 % (42-52); Hemoglobin 10.6 g/dL (14.0-18.0)
--- NOTE | 2019-08-11 13:47 | Hospitalist Progress Note ---
Date of Service August 11, 2019 Assessment & Plan (1) Femur fracture, right: Patient is a 78-year-old male with H/O Type 2 diabetes and smokeless tobacco use who presents after fall this afternoon and was found to have acute fracture of right femur. Right hip fracture S/P Mechanical fall in setting of peripheral neuropathy Hip X ray:Acute transcervical fracture of the right femur with mild impaction and mild apex superior angulation. S/P right hip bipolar hemiarthroplasty POD #4 Weightbearing as tolerated Pain is controlled Appreciate orthopedics input Bowel regimen to prevent constipation Monitor for postop anemia Wound care as per Ortho. PT/OT Plan to discharge to rehab facility today (2) Diabetes mellitus, type II: A1c 5.7 in Jul 2019 Hold home agents Continue insulin sliding scale while hospitalized Monitor blood glucose levels (3) Tobacco use: Daily smokeless tobacco use Counseled Cessation DVT Px: on ASA BID Code status: FULL Disposition [facility] Case management for discharge plan Subjective Patient is seen and examined at bedside Doing well today No new complaints Ambulating better Denies any chest pain, shortness of breath, dizziness, nausea, abdominal pain Family at bedside Plan to be discharged to rehab facility today Review of Systems 2 Review of Systems: All systems reviewed & are unremarkable except as noted in HPI & below Physical Exam Physical Exam: Physical Exam: Vitals signs as noted above General Appearance:Moderately built and nourished, no apparent distress Head: normocephalic, Atraumatic Eyes: normal inspection, EOMI Neck: supple, Trachea midline Respiratory/Chest: Normal breath sounds, CTA Cardiovascular: S1, S2, No murmur Abdomen/GI:Soft, Non tender, Bowel sounds present Extremities/Musculoskelatal:normal inspection, no edema, R hip + dressing Neurologic/Psych:AAOX3, grossly no focal neurological deficits Skin: normal color, warm Results & Data Vital Signs (Past 12 Hours) Vital Signs Temp Pulse Resp BP Pulse Ox Pulse Ox 08/11/19 07:47 94 08/11/19 07:15 36.9 C 82 18 110/64 94 Laboratory Results Short CBC 08/11/19 Range/Units 08:25 Hgb 10.6 L (14.0-18.0) g/dL Hct 32.2 L (42-52) %
--- NOTE | 2019-08-11 13:57 | Discharge Summary ---
Date of Service August 11, 2019 Admission HPI Per Admitting Provider This is a 78-year-old male with a PMH of type 2 diabetes and smokeless tobacco use who presents after fall this afternoon. Patient was working in his friend's garage and was reaching upwards working on garage door for extended period of time when he became lightheaded and fell, landing on his right side. Has history of peripheral neuropathy, which he feels also contributed to fall. After fall, patient was able to get up but cannot bear any weight on right leg and friend called EMS. Denies any head trauma or loss of consciousness. Has proximal right leg pain with any type of movement but is pain-free at rest. Denies any lightheadedness, visual changes, chest pain, palpitations or shortness of breath. No recent illnesses, fever or chills. No nausea, vomiting or abdominal pain. Denies dysuria, diarrhea or constipation. Denies any surgical history. Does not take any blood thinning medication. No known history of NC, CKD or DVT/PE. Only medication patient is on his metformin. Admission Exam Per Admitting Provider Physical Exam Physical Exam: General Appearance: WD/WN, vitals as above, NAD, sitting up in bed, pleasant, conversing easily Head: normocephalic, atraumatic Eyes: normal inspection, PERRL, conjunctivae normal, anicteric sclerae ENT: external ear and nose normal, oropharynx normal Neck: trachea midline, no thyromegaly normal visual inspection Respiratory: lungs clear to auscultation, no wheeze, rales, rhonchi. Normal insp/exp effort, no accessory muscle use Cardiovascular: regular rate, rhythm, no murmur, normal peripheral pulses. Vessels: no JVD or carotid bruit Chest: normal inspection of chest Abdomen/GI: normal bowel sounds, soft, nontender, no hepatosplenomegaly Extremities/Musculoskelatal: R leg internally rotated and shorteded. TTP along lateral proximal thigh. No deformity noted. No cyanosis or clubbing, extremities motor strength 5/5 Neurologic: PERRL, EOMI, accommodation nl, no face palsy, no dysarthria, CN's II-XI intact bilaterally and moves all extremities Psychiatric: A+Ox3, euthymic affect Skin: no rashes, normal color, warm/dry Principal Diagnosis Right Femoral Neck Fracture Discharge Data Allergies Allergy/AdvReac Type Severity Reaction Status Date / Time No Known Allergies Allergy Unverified 08/07/19 14:17 Consultations 08/06/19 14:20 ED Decision to Admit Stat 08/06/19 16:19 Consult Anesthesiology Routine Consult Case Management - Discharge Planning Routine Consult Orthopedic Surgery Routine 08/08/19 08:00 Consult Case Management - Discharge Planning Routine Procedures Performed Operation Date: 08/07/19 07:00 Actual Procedures p Right Bipolar Hemiarthroplasty, uncemented (Right) - Efren Reddy DO Ordered Studies Hip X ray: Acute transcervical fracture of the right femur with mild impaction and mild apex superior angulation. Hospital Course (1) Femur fracture, right: Patient is a 78-year-old male with H/O Type 2 diabetes and smokeless tobacco use who presents after fall this afternoon and was found to have acute fracture of right femur. Right hip fracture S/P Mechanical fall in setting of peripheral neuropathy Hip X ray:Acute transcervical fracture of the right femur with mild impaction and mild apex superior angulation. S/P right hip bipolar hemiarthroplasty POD #4 Weightbearing as tolerated Pain is controlled Appreciate orthopedics input Bowel regimen to prevent constipation Monitor for postop anemia Wound care as per Ortho. PT/OT Plan to discharge to rehab facility today (2) Diabetes mellitus, type II: A1c 5.7 in Jul 2019 Hold home agents Continue insulin sliding scale while hospitalized Monitor blood glucose levels (3) Tobacco use: Daily smokeless tobacco use Counseled Cessation DVT Px: on ASA BID Code status: FULL Disposition [facility] Case management for discharge plan Total Time Total Time Spent Total Time Spent (In Minutes): 37 minutes Discharge Plan Discharge Items Patient Disposition: Transfer Half-Way Fac Reason For Visit: R FEMUR FX Discharge Diagnosis: Right Femoral Neck Fracture Condition on Discharge: Good Health Concerns: Right hip fracture Activity: Per Instructions section Exercise/Sports: Gradually increase as tolerated Weightbearing: Right weightbearing Weightbearing Comment: as tolerated with walker Non-emergency contact: Primary Care Provider and Surgeon Call non-emergency contact if: you have any medication questions, your symptoms worsen, your pain is not controlled, your pain is worsening, your pain is unusual for you, your pain is concerning for you, you have a fever, your temperature is above 101.5, your wound has increased redness and your wound has increased drainage Follow-up/Referrals: Tj Gibson MD [Primary Care Provider] - Diet: Carb Consistent or DM2 and Heart Healthy Addtl Attending Provider Instructions: Follow up with your PCP in 1 week upon discharge from rehab facility Follow up with your Surgeon Dr.Bradley Reddy as recommended. Please call for appointment Seek immediate medical attention if your symptoms reoccur or worsen Addtl Principal Java Software Engineer Provider Instructions: ACTIVITY RECOMMENDATIONS: SELF CARE INSTRUCTIONS AFTER TOTAL HIP REPLACEMENT Until the incision and soft tissues around your hip have healed, there is a possibility that the hip prosthesis could dislocate. A. Observe the following precautions to prevent dislocation: 1. Don't bend your hip greater than 90 degrees. 2. Avoid crossing your legs or ankles while standing or lying. 3. Sit with your feet placed 6 inches apart. 4. When sitting, keep your knees below your hips. Sit on a firm surface, avoid deep, soft chairs and couches. Use an elevated toilet seat in the bathroom. 5. Don't bend over at the waist. Use a long handled shoehorn and a sock aid to help you put on your shoes and socks. A invoice classification clerk can help you pickle sorter objects that are too high or too low to reach. 6. Keep car riding to a minimum for at least one month after surgery. B. Your balance may be shaky for a while. Use crutches or a walker until directed by your doctor. C. Use hand rails when walking on stairs. D. Wear low heeled shoes with non-slip soles. E. Be sure that your floors are free of things that could trip you - throw rugs, electrical cords, small objects. Avoid wet and waxed floors, especially with crutches and canes. F. Try to walk several times a day with rest periods between. G. Continue with all the exercises taught to you in the hospital. Again, make walking a part of your daily routine. SPECIAL CARE INSTRUCTIONS: VERY IMPORTANT TO READ AND REVIEW A. You may still be at risk for phlebitis and blood clots. 1. Wear surgical stockings (TIMOTEO hose) for 2 weeks after surgery to improve circulation and reduce swelling. 2. Take Aspirin 81mg twice daily for 4 weeks or as directed by your doctor. This is your blood thinner. 3. High risk patients may be prescribed a stronger blood thinner if necessary. 4. If you are on Coumadin normally, your family doctor/nuclear spectroscopist should monitor your blood work. Expect a phone call the day of or the day after bloodwork is drawn to adjust your dosage. B. You must take antibiotics before having dental work, bladder, bowel and other surgery. Your doctor will provide you with a permanent card to carry describing precautions. C. Call [facility] if you have a fever, redness or swelling around the incision, cloudy drainage from incision, or sudden increase in pain in your hip, not relieved by your regular pain medication. D. Please call the office at if you have any concerns or questions about your operation or recovery. * YOU MAY SHOWER, NO TUB BATHS UNTIL CLEARED BY YOUR DOCTOR. * WEAR TIMOTEO HOSE 20 HOURS PER DAY FOR 2 WEEKS. * YOU SHOULD USE A WALKER OR CRUTCHES FOR 2-4 WEEKS. THIS WILL HELP PREVENT STRAIN ON YOUR HIP MUSCLE AND ALLOW IT TO HEAL PROPERLY. YOU MAY WEAN TO A CANE TOLERATED. * MOST PATIENTS WILL HAVE HOME NURSING FOR THERAPY. IF YOU DECIDE TO DO OUTPATIENT PHYSICAL THERAPY, PLEASE SCHEDULE THIS 3 TIMES PER WEEK. * Silverlon- This is a large adhesive bandage that contains silver ions. This helps your incision heal by fighting off bacteria and protecting it from the outside environment. You are permitted to shower with this dressing. This will remain on your incision for 7 days and then should be removed. Some visible blood or drainage through the dressing window is normal. If there is significant drainage or leaking noted before the 7 days notify your doctor's office immediately. Once removed, keep incision clean and dry. If there is any drainage or redness noted, please call your surgeon. . FOLLOW UP VISIT: If appointment is not already scheduled: Please call [facility] to make a follow-up appointment for 2 weeks after your surgery at . Pending Studies at Discharge: No Stand-Alone Forms: My [facility] Skilled Items Patient informed of condition?: Yes DNR: No Discharge Level of Care: Acute rehab Communicable Disease: No Discharge Prognosis: Improving Lines: None Urinary Catheter: No Medications and DC Order Prescriptions: New ferrous gluconate 324 mg (37.5 mg iron) tablet 324 mg PO BID Qty: 60 RF: 0 aspirin 81 mg tablet,chewable 81 mg PO BID Qty: 60 RF: 0 docusate sodium [Colace] 100 mg capsule 100 mg PO BID PRN (Reason: constipation) Qty: 60 RF: 0 polyethylene glycol 3350 [Miralax] 17 gram powder in packet 17 gm PO DAILY PRN (Reason: constipation) Qty: 30 RF: 0 oxycodone 5 mg tablet 5 mg PO Q8H PRN (Reason: pain) Qty: 12 RF: 0 Continued metformin 500 mg Tablet 500 mg PO BID RF: 0 Discharge Orders: Discharge Order (Routine); Ordered 08/11/19 Ordered By: Dickson Pichardo Admission Data Admit Date/Time: 08/06/19 15:10 Attending Provider: Dickson Pichardo Admit Provider: Chapito Darby Primary Care Provider: Tj Gibson Other Providers: [facility] ; [facility] ; Chapito Darby ; Gilmer Turk ; Efren Reddy ; [facility] ; [facility] Other Interventions: Discharge Summary Assessment (RN) Last Done: 08/11/19 13:54 DC Date/Time DO NOT enter until pt leaves facility: 08/11/19 14:24
== END 2019-08-11 14:24 | DRG 470 ==
LOC: ED 12:10 → SUATTDRO 15:10 → 3W 15:10

== ENCOUNTER 2020-07-08 23:16 | Inpatient (IN) ==
[2020-07-08] MEDS ORDERED: RAPID SEQUENCE INDUCTION BAG ONE (23:42)
[2020-07-08 23:44] LABS: Basophils # (auto) 0.03 K/uL (0-0.2); Basophils % (auto) 0.2 %; Eosinophils # (auto) 0.01 K/uL (0-0.5); Eosinophils % (auto) 0.1 %; Hematocrit (blood only) 41.6 % (42-52); Hemoglobin 13.5 g/dL (14.0-18.0); Immature Granulocytes # (auto) 0.31 K/uL (0.00-0.02); Immature Granulocytes % (auto) 1.7 %; Lymphocytes # (auto) 1.48 K/uL (1.2-3.4); Mean Corpuscular Hemoglobin 33.2 pg (25-34); Mean Corpuscular Hgb Conc 32.5 g/dL (32-36); Mean Corpuscular Volume 102.2 fL (80-100); Mean Platelet Volume 10.3 fL (7.4-10.4); Monocytes # (auto) 1.38 K/uL (0.11-0.59); Monocytes % (auto) 7.5 %; Neutrophils # (auto) 15.18 K/uL (1.4-6.5); Neutrophils % (auto) 82.5 %; Platelet Count 388 K/uL (130-400); RDW Coefficient of Variation 13.3 % (11.5-14.5); Red Blood Count 4.07 M/uL (4.7-6.1); White Blood Count 18.39 K/uL (4.8-10.8)
[2020-07-08 23:54] LABS: INR 1.3 (0.9-1.1); Partial Thromboplastin Ratio 1.1; Partial Thromboplastin Time 30.6 Seconds (21.0-31.0)
[2020-07-09] MEDS ORDERED: DEXAMETHASONE SOD INJ 10 MG/ML VIAL IV ONE (00:15)
[2020-07-09 00:16] LABS: Alanine Aminotransferase 271 U/L (12-78); Albumin Globulin Ratio 0.6 (0.9-2); Alkaline Phosphatase 70 U/L (45-117); Aspartate Aminotransferase 327 U/L (15-37); BUN Creatinine Ratio 13.5 (10-20); Bilirubin,Total 1.9 mg/dl (0.2-1); Blood Urea Nitrogen 53 mg/dl (7-18); Calcium 9.2 mg/dl (8.5-10.1); Carbon Dioxide 13 mmol/L (21-32); Chloride 98 mmol/L (98-107); Est GFR (African American) 16.3; Globulin 5.4 gm/dl (2.5-4.0); Glucose 317 mg/dl (70-99); Magnesium 2.5 mg/dl (1.8-2.4); Potassium 4.1 mmol/L (3.5-5.1); Sodium 135 mmol/L (136-145); Total Protein 8.4 gm/dl (6.4-8.2)
[2020-07-09 00:34] LABS: Beta-Hydroxybutyrate 4.39 mg/dl (0.2-2.81); NT Pro B Type Natriuretic Pept > 35000 pg/ml (0-1800)
[2020-07-09 00:53] LABS: Appearance Urine Cloudy (Clear); Blood Urine Negative (Negative); Color Urine Amber; Glucose Urine UA Trace (Negative); Ketones Urine 1+ (Negative); Leukocyte Esterase Urine Negative (Negative); Nitrite Urine Positive (Negative); Protein Urine 1+ (Negative); Specific Gravity Urine >= 1.030 (1.000-1.030); Urobilinogen Urine Positive (Negative)
[2020-07-09 00:57] LABS: Bilirubin Urine 2+ (Negative); Ictotest Urine Positive (Negative)
[2020-07-09 00:59] LABS: Hyaline Casts Urine >30 /lpf (0-5)
[2020-07-09 01:00] LABS: Epithelial Cell Urine 20-30 /lpf (0-5)
[2020-07-09 01:01] LABS: Bacteria Urine 3+ (Negative); RBC Urine 0-4 /hpf (0-4)
[2020-07-09] MEDS ORDERED: STAT IV Infusion **Titration per Protocol STA ×3 (01:19→02:58)
[2020-07-09] MEDS ORDERED: PROPOFOL BOLUS FROM BAG IV PRN (01:19)
[2020-07-09] MEDS ORDERED: PROPOFOL IV EMULSION 10 MG/ML 100 ML VIAL IV ONE (01:24)
[2020-07-09] MEDS ORDERED: propofoL 1,000 MG/100 ML VIAL IV SCH (01:30)
--- NOTE | 2020-07-09 01:39 | Emergency Department Note ---
Impression & Plan Acute hypoxemic respiratory failure due to COVID-19, Acute renal failure (ARF), Sepsis, Pneumonia due to COVID-19 virus ED Provider Note NAME: CODIE URIARTE AGE: 79 SEX: M ARRIVES VIA: Ambulance INFORMANT: Patient EMS, the patient's daughter ED PROVIDER(S): Isadora Quan DO CHIEF COMPLAINT: Shortness of breath and left-sided chest pain PLAN: Disposition: Admitted to the ICU Condition: Critical MEDICAL DECISION MAKING: This is a 79-year-old male patient who presents to the emergency department after a 5-day history of increasing weakness and flulike symptoms. The patient's son tested positive this morning for COVID-19. Throughout the day today, he became increasingly weak, short of breath and developed chest pain tonight. Upon EMS arrival, the patient's O2 saturations were between 50 and 60 on room air. Prehospital EKGs showed questionable ST segment elevation NH versus a new left bundle branch block. I attempted to find an old EKG on this patient but was unsuccessful in our [employer] system. ED case management could not find an old EKG on this patient in ice system. A portable chest x- ray done when the patient arrived here in the emergency department clearly showed bilateral airspace opacities concerning for Covid pneumonia.. The bedside [id number] antigen test was rapidly positive. Patient's O2 saturations on presentation here in the ER on 15 L of O2 were 80% and were quickly declining into the 70s. The patient requested all life-saving measures and I performed endotracheal intubation with RSI for acute hypoxemic respiratory failure secondary to Covid pneumonia. The patient was noted to have significant leukocytosis with a white blood cell count of 18,000. He appeared to be in acute renal failure with a creatinine of 3.8 (baseline of 1.3.) He had significant hyperglycemia with a glucose of 317. A Fuller catheter was placed and the patient had very little urinary output. The patient had transaminitis most likely consistent with his acute viral infection. The patient had a lactate of 12 consistent with severe sepsis and had had episodes of hypotension. He had a troponin greater than 24 and a BNP greater than 35,000. I considered the possibility of pulmonary edema with a new left bundle branch block. I did not think he would be a candidate for the Sterilizer Operator. The patient was felt to be in critical condition. I discussed the case with the patient's daughter who was at the house when EMS arrived and explained that she would be the point of contact and provided her phone number. Case was discussed with the [facility] hospitalist as well as critical care medicine. He will be admitted to the Covid unit under adequate care medicine. Triage Nursing notes reviewed and agree them. Additional history obtained from EMS; phone call discussion with the patient's daughter Prior medical records reviewed Vital Signs: reviewed and remarkable for hypoxia, tachypnea and tachycardia Differential diagnosis: Pneumonia, pulmonary edema, COVID-19, STEMI, bronchitis ER treatment provided: Endotracheal intubation IV normal saline bolus IV Decadron RSI-IV etomidate/IV succinylcholine IV vecuronium IV Versed Diagnostics interpreted by me: ECG: Sinus tachycardia at 115 with left bundle branch block; no previous EKGs for comparison; no previous EKGs in the [facility] system Cardiac Monitoring: Sinus tachycardia at 122 Laboratory studies: See below Imaging studies: As per my interpretation Chest x-ray: Massive bilateral airspace opacities versus pulmonary edema Post intubation chest x-ray: Persistent airspace opacities with right mainstem intubation HPI: 79/M arrives for evaluation of shortness of breath and left-sided chest pain. The patient developed worsening weakness today and shortness of breath according to EMS. They explained that the patient's son was diagnosed with COVID-19 this morning. The patient became more weak throughout the day today and developed a sudden onset of left-sided chest pain and shortness of breath to night. Upon presentation to the ER, the patient described feeling sweaty with some mild left-sided chest discomfort and feeling unable to catch his breath. He denies ever having a previous cardiac event. He had a bruise to the left side of his chest wall and some healing wounds to both of his knees that he states were from a fall that he suffered 4 days ago secondary to his diabetic neuropathy. ROS: See above HPI for pertinent positives & negatives. A total of 10 systems reviewed and were otherwise negative. PAST MEDICAL HISTORY:Diabetes PAST SURGICAL HISTORY:Patient denies any past surgical history FAMILY HISTORY:Patient denies any significant family history SOCIAL HISTORY:The patient lives with his and smokes. EMS state that the patient's and daughter were present at the house but will not be coming to the hospital. They did provide the daughter cell phone number for contact. HOME MEDICATIONS:See list ALLERGIES:None VITALS:See Below PHYSICAL EXAMINATION: HEENT: Head - normocephalic and atraumatic. Pupils are equal, round, and re active to light. Extraocular eye muscles are intact, and sclera are anicteric. Nose - moist nasal mucosa without discharge. Mouth - moist buccal mucosa. Oropharynx is nonerythematous and there is no tonsillar exudate or edema noted. Neck: Supple; no nuchal rigidity or cervical lymphadenopathy Heart: Tachycardic rate and regular rhythm. There is a normal S1 and S2 with no murmurs, clicks, or gallops appreciated. Lungs: Diffuse rales in all lung clements Abdomen: Soft, completely nontender, nondistended, with good bowel sounds. There are no palpable pulsatile masses or hepatosplenomegaly. There is no guarding, rigidity, or rebound noted. Extremities: Trace pedal edema in both lower extremities with scabbed over abrasions to both knees. There was a contusion to the left anterior chest wall Skin: Extremely pale and diaphoretic. No rashes were noted ED COURSE: Times/Reassessments: [id number] the patient was quickly evaluated in room B8. I donned complete PPE out of concern this patient had COVID-19 because of his exposure to his son and his presentation in severe respiratory failure. An order was placed for continuous cardiac monitoring. The patient was in a sinus tachycardia at a rate of 122. A twelve-lead EKG was obtained as described above. A complete history and physical was performed. Nursing staff were able to establish an IV lock and laboratory studies were drawn as above. A septic protocol was performed O2 saturations were in the 80s despite being on a nonrebreather mask at 15 L of oxygen. A portable chest x-ray and twelve-lead EKG were ordered. A rapid Covid antigen test was performed and was quickly positive. The patient's O2 saturations continued to decline into the 70s despite being on supplemental oxygen. I did have a meaningful conversation with the patient about advanced care measures and life support. He requested all measures to be taken. Nursing staff and respiratory therapy assembled to perform RSI and I prepared to perform endotracheal intubation. The patient's blood pressure was marginal. He was bolused with 500 cc of normal saline solution. Endotracheal Intubation Indication respiratory failure. The patient was on 100% oxygen via NRB prior to the procedure. Suction, airway equipment, RSI drugs, respiratory equipment, and appropriate personnel were prepared prior to the initiation of the procedure. A time out was taken. Induction was performed with 150 mg of succinylcholine and 30 mg of etomidate. After observing the clinical benefit of the medications, the airway was easily visualized utilizing a glide scope. A 8.0 size ETT tube was placed atraumatically to 24 cm using standard technique. The cuff inflated without signs of malfunction. There were bilateral breath sounds, positive colormetric change, no gastric sounds, and post procedure pulse oximetry was 92%. Post intubation sedation and paralysis was administered using 5 mg of IV vecuronium and 2.5 mg of IV Versed. There were no complications. A post intubation x-ray was obtained and revealed a right mainstem bronchus intubation. The endotracheal tube was pulled back by 2 cm. The patient was given 10 mg of IV Decadron. A Fuller catheter was placed Once I was freed from the patient's room, I immediately called the patient's daughter-Rosi to make her aware of his condition. I suggested possibly speaking with the patient's but she stated that she was already in bed and that she would communicate with her. The daughter was able to provide a much more robust history including that the patient has been having flulike symptoms for the past 5-6 days as has multiple other family members thought most likely secondary to COVID-19 that they contracted from Thanksgiving. She confirmed that the patient's son did test positive earlier that day for Covid and that the patient had been around him in the recent past. The daughter explained that the patient has been extremely weak over the past couple of days and the wounds on his knees and anterior chest wall were from falls that he has suffered over the past couple days from such extreme weakness. I contacted Stephon-nurse practitioner from the ICU [facility]. I have personally spent greater than 110 minutes of critical care time in the direct management of this patient. This includes bedside care, interpretation of diagnostic studies, and testing, discussion with consultants, patient, and family members, and other required patient management activities. This 110 minutes is in excess of all separately billable procedures. Isadora Quan DO Past Med/Surg History Medical History Diabetes mellitus, type II Tobacco use Surgical History No history of previous surgery Family History Other Family history non-contributory Social History Smoking Status: Never smoker Hx Substance Use: No Preferred Language: Hungarian Communication Ability: Impaired Senior Business Analyst Required: No Beliefs That Will Affect Care: None marital status: Current Living Situation: Spouse Current Living Situation Comment: [facility] Feels Safe at Home: Yes Assistive Devices: Walker Allergies Allergies Allergy/AdvReac Type Severity Reaction Status Date / Time No Known Allergies Allergy Verified 07/08/20 23:45 Home Meds Home Medications Medication Instructions Recorded Confirmed metformin 500 mg PO BIDM 08/06/19 07/08/20 acetaminophen [Tylenol] 650 mg PO DIRECTED PRN 07/08/20 07/08/20 aspirin 81 mg PO DAILY 07/08/20 07/08/20 Results & Data (ED) Vital Signs Vital Signs - 24 hr 07/08/20 23:19 07/08/20 23:23 07/08/20 23:24 Temperature 35.3 C L Temperature Source Rectal Pulse Rate 112 H 109 H 109 H Pulse Rate from SpO2 Sensor 108 H 107 H Respiratory Rate 37 H 42 H 34 H Respiratory Effort / Characteristics Labored Short of Breath SOB on Exertion Respiratory Pattern Tachypnea Blood Pressure 110/72 110/72 Blood Pressure Mean 84 86 Blood Pressure Position Sitting Pulse Oximetry 88 L 83 L 85 L Oxygen Delivery Method Non-rebreather Non-rebreather Non-rebreather Oxygen Flow Rate 15 15 15 Fraction of Inspired Oxygen Sepsis Recent Fever Within 48 Hours No Sepsis New/Unexplained Change in Mental Status Yes Sepsis Action Taken by Nursing Physician Notified Pulse Oximetry Post Tiitration 07/08/20 23:43 07/08/20 23:45 07/08/20 23:46 Temperature Temperature Source Pulse Rate 108 H 107 H 108 H Pulse Rate from SpO2 Sensor 108 H 107 H 109 H Respiratory Rate 35 H 34 H 35 H Respiratory Effort / Characteristics Respiratory Pattern Blood Pressure 110/70 106/73 Blood Pressure Mean 88 86 Blood Pressure Position Pulse Oximetry 71 L 70 L 69 L Oxygen Delivery Method Ambu-Bag Ambu-Bag Oxygen Flow Rate Fraction of Inspired Oxygen Sepsis Recent Fever Within 48 Hours Sepsis New/Unexplained Change in Mental Status Sepsis Action Taken by Nursing Pulse Oximetry Post Tiitration 07/08/20 23:54 07/08/20 23:58 07/09/20 00:00 Temperature Temperature Source Pulse Rate 114 H 105 H 103 H Pulse Rate from SpO2 Sensor 115 H 106 H 103 H Respiratory Rate 5 L 0 L 6 L Respiratory Effort / Characteristics Respiratory Pattern Blood Pressure 104/75 104/76 108/78 Blood Pressure Mean 85 83 92 Blood Pressure Position Pulse Oximetry 89 L 89 L 91 Oxygen Delivery Method Mechanical Vent Mechanical Vent Mechanical Vent Oxygen Flow Rate Fraction of Inspired Oxygen Sepsis Recent Fever Within 48 Hours Sepsis New/Unexplained Change in Mental Status Sepsis Action Taken by Nursing Pulse Oximetry Post Tiitration 07/09/20 00:02 07/09/20 00:15 07/09/20 00:22 Temperature Temperature Source Pulse Rate 108 H 111 H 108 H Pulse Rate from SpO2 Sensor 111 H 108 H Respiratory Rate 18 22 15 Respiratory Effort / Characteristics Respiratory Pattern Blood Pressure 92/73 L 106/78 Blood Pressure Mean 80 83 Blood Pressure Position Pulse Oximetry 93 82 L 85 L Oxygen Delivery Method Mechanical Vent Mechanical Vent Oxygen Flow Rate Fraction of Inspired Oxygen 100 Sepsis Recent Fever Within 48 Hours Sepsis New/Unexplained Change in Mental Status Sepsis Action Taken by Nursing Pulse Oximetry Post Tiitration 07/09/20 00:30 07/09/20 00:41 07/09/20 00:45 Temperature Temperature Source Pulse Rate 112 H 113 H 114 H Pulse Rate from SpO2 Sensor 112 H 114 H Respiratory Rate 16 16 16 Respiratory Effort / Characteristics Respiratory Pattern Blood Pressure 107/83 108/88 Blood Pressure Mean 91 93 Blood Pressure Position Pulse Oximetry 90 91 92 Oxygen Delivery Method Mechanical Vent Mechanical Vent Mechanical Vent Oxygen Flow Rate Fraction of Inspired Oxygen Sepsis Recent Fever Within 48 Hours Sepsis New/Unexplained Change in Mental Status Sepsis Action Taken by Nursing Pulse Oximetry Post Tiitration 92 07/09/20 00:46 07/09/20 00:52 07/09/20 01:05 Temperature Temperature Source Pulse Rate 112 H 115 H Pulse Rate from SpO2 Sensor 113 H 115 H Respiratory Rate 16 18 Respiratory Effort / Characteristics Labored Short of Breath SOB on Exertion Respiratory Pattern Tachypnea Blood Pressure 125/95 Blood Pressure Mean 106 Blood Pressure Position Pulse Oximetry 92 91 Oxygen Delivery Method Mechanical Vent Oxygen Flow Rate Fraction of Inspired Oxygen Sepsis Recent Fever Within 48 Hours Sepsis New/Unexplained Change in Mental Status Sepsis Action Taken by Nursing Pulse Oximetry Post Tiitration 07/09/20 01:06 07/09/20 01:15 07/09/20 01:16 Temperature Temperature Source Pulse Rate 115 H 116 H 115 H Pulse Rate from SpO2 Sensor 115 H 116 H 116 H Respiratory Rate 16 16 16 Respiratory Effort / Characteristics Respiratory Pattern Blood Pressure 116/79 115/84 Blood Pressure Mean 95 99 Blood Pressure Position Pulse Oximetry 92 91 92 Oxygen Delivery Method Mechanical Vent Mechanical Vent Oxygen Flow Rate Fraction of Inspired Oxygen Sepsis Recent Fever Within 48 Hours Sepsis New/Unexplained Change in Mental Status Sepsis Action Taken by Nursing Pulse Oximetry Post Tiitration Laboratory Data Result diagrams: 07/09/20 04:44 07/09/20 04:44 Lab Results 07/08/20 07/08/20 07/08/20 Range/Units 23:30 23:30 23:30 WBC 18.39 H (4.8-10.8) K/uL RBC 4.07 L (4.7-6.1) M/uL Hgb 13.5 L (14.0-18.0) g/dL Hct 41.6 L (42-52) % MCV 102.2 H (80-100) fL MCH 33.2 (25-34) pg MCHC 32.5 (32-36) g/dL RDW Std Deviation 50.0 H (36.4-46.3) fL RDW Coeff of Amari 13.3 (11.5-14.5) % Plt Count 388 (130-400) K/uL MPV 10.3 (7.4-10.4) fL Immature Gran % (Auto) 1.7 % Neut % (Auto) 82.5 % Lymph % (Auto) 8.0 % Parke % (Auto) 7.5 % Eos % (Auto) 0.1 % Baso % (Auto) 0.2 % Neut # (Auto) 15.18 H (1.4-6.5) K/uL Lymph # (Auto) 1.48 (1.2-3.4) K/uL Parke # (Auto) 1.38 H (0.11-0.59) K/uL Eos # (Auto) 0.01 (0-0.5) K/uL Baso # (Auto) 0.03 (0-0.2) K/uL Immature Gran # (Auto) 0.31 H (0.00-0.02) K/uL PT 14.0 H (9.0-12.0) Seconds INR 1.3 H (0.9-1.1) APTT 30.6 (21.0-31.0) Seconds PTT Ratio 1.1 Sodium 135 L (136-145) mmol/L Potassium 4.1 (3.5-5.1) mmol/L Chloride 98 (98-107) mmol/L Carbon Dioxide 13 L (21-32) mmol/L Anion Gap 24.0 H (3-11) BUN 53 H (7-18) mg/dl Creatinine 3.88 H (0.6-1.4) mg/dl Est Cr Clr Drug Dosing Not Reportable Est GFR ( Amer) 16.3 Est GFR (Non-Af Amer) 14.0 BUN/Creatinine Ratio 13.5 (10-20) Glucose 317 H* (70-99) mg/dl Lactate (0.4-2.0) mmol/L Calcium 9.2 (8.5-10.1) mg/dl Magnesium 2.5 H (1.8-2.4) mg/dl Total Bilirubin 1.9 H (0.2-1) mg/dl AST 327 H (15-37) U/L ALT 271 H (12-78) U/L Alkaline Phosphatase 70 (45-117) U/L Total Creatine Kinase (39-308) U/L Troponin I 24.500 H* (0-0.045) ng/ml NT-Pro-B Natriuret Pep > 61768 H (0-1800) pg/ml Total Protein 8.4 H (6.4-8.2) gm/dl Albumin 3.0 L (3.4-5.0) gm/dl Globulin 5.4 H (2.5-4.0) gm/dl Albumin/Globulin Ratio 0.6 L (0.9-2) Beta-Hydroxybutyric Acd 4.39 H (0.2-2.81) mg/dl Procalcitonin (0-0.5) ng/ml Urine Color Urine Appearance (Clear) Urine pH (4.5-7.5) Ur Specific [place] (1.000-1.030) Urine Protein (Negative) Urine Glucose (UA) (Negative) Urine Ketones (Negative) Urine Blood (Negative) Urine Nitrite (Negative) Urine Bilirubin (Negative) Urine Urobilinogen (Negative) Ur Leukocyte Esterase (Negative) Urine RBC (0-4) /hpf Urine WBC (0-5) /hpf Ur Epithelial Cells (0-5) /lpf Urine Bacteria (Negative) Hyaline Casts (0-5) /lpf Granular Casts (0) /lpf SARS-CoV-2, RNA, NAAT (NEGATIVE) SARS-CoV-2 Ag (Rapid) (Negative) 07/08/20 07/08/20 07/08/20 Range/Units 23:30 23:30 23:30 WBC (4.8-10.8) K/uL RBC (4.7-6.1) M/uL Hgb (14.0-18.0) g/dL Hct (42-52) % MCV (80-100) fL MCH (25-34) pg MCHC (32-36) g/dL RDW Std Deviation (36.4-46.3) fL RDW Coeff of Amari (11.5-14.5) % Plt Count (130-400) K/uL MPV (7.4-10.4) fL Immature Gran % (Auto) % Neut % (Auto) % Lymph % (Auto) % Parke % (Auto) % Eos % (Auto) % Baso % (Auto) % Neut # (Auto) (1.4-6.5) K/uL Lymph # (Auto) (1.2-3.4) K/uL Parke # (Auto) (0.11-0.59) K/uL Eos # (Auto) (0-0.5) K/uL Baso # (Auto) (0-0.2) K/uL Immature Gran # (Auto) (0.00-0.02) K/uL PT (9.0-12.0) Seconds INR (0.9-1.1) APTT (21.0-31.0) Seconds PTT Ratio Sodium (136-145) mmol/L Potassium (3.5-5.1) mmol/L Chloride (98-107) mmol/L Carbon Dioxide (21-32) mmol/L Anion Gap (3-11) BUN (7-18) mg/dl Creatinine (0.6-1.4) mg/dl Est Cr Clr Drug Dosing Est GFR ( Amer) Est GFR (Non-Af Amer) BUN/Creatinine Ratio (10-20) Glucose (70-99) mg/dl Lactate (0.4-2.0) mmol/L Calcium (8.5-10.1) mg/dl Magnesium (1.8-2.4) mg/dl Total Bilirubin (0.2-1) mg/dl AST (15-37) U/L ALT (12-78) U/L Alkaline Phosphatase (45-117) U/L Total Creatine Kinase (39-308) U/L Troponin I (0-0.045) ng/ml NT-Pro-B Natriuret Pep (0-1800) pg/ml Total Protein (6.4-8.2) gm/dl Albumin (3.4-5.0) gm/dl Globulin (2.5-4.0) gm/dl Albumin/Globulin Ratio (0.9-2) Beta-Hydroxybutyric Acd (0.2-2.81) mg/dl Procalcitonin 1.64 H (0-0.5) ng/ml Urine Color Urine Appearance (Clear) Urine pH (4.5-7.5) Ur Specific [place] (1.000-1.030) Urine Protein (Negative) Urine Glucose (UA) (Negative) Urine Ketones (Negative) Urine Blood (Negative) Urine Nitrite (Negative) Urine Bilirubin (Negative) Urine Urobilinogen (Negative) Ur Leukocyte Esterase (Negative) Urine RBC (0-4) /hpf Urine WBC (0-5) /hpf Ur Epithelial Cells (0-5) /lpf Urine Bacteria (Negative) Hyaline Casts (0-5) /lpf Granular Casts (0) /lpf SARS-CoV-2, RNA, NAAT POSITIVE A* (NEGATIVE) SARS-CoV-2 Ag (Rapid) Positive A* (Negative) 07/09/20 07/09/20 07/09/20 Range/Units 00:25 01:06 01:22 WBC (4.8-10.8) K/uL RBC (4.7-6.1) M/uL Hgb (14.0-18.0) g/dL Hct (42-52) % MCV (80-100) fL MCH (25-34) pg MCHC (32-36) g/dL RDW Std Deviation (36.4-46.3) fL RDW Coeff of Amari (11.5-14.5) % Plt Count (130-400) K/uL MPV (7.4-10.4) fL Immature Gran % (Auto) % Neut % (Auto) % Lymph % (Auto) % [place]ke % (Auto) % Eos % (Auto) % Baso % (Auto) % Neut # (Auto) (1.4-6.5) K/uL Lymph # (Auto) (1.2-3.4) K/uL [place]ke # (Auto) (0.11-0.59) K/uL Eos # (Auto) (0-0.5) K/uL Baso # (Auto) (0-0.2) K/uL Immature Gran # (Auto) (0.00-0.02) K/uL PT (9.0-12.0) Seconds INR (0.9-1.1) APTT (21.0-31.0) Seconds PTT Ratio Sodium (136-145) mmol/L Potassium (3.5-5.1) mmol/L Chloride (98-107) mmol/L Carbon Dioxide (21-32) mmol/L Anion Gap (3-11) BUN (7-18) mg/dl Creatinine (0.6-1.4) mg/dl Est Cr Clr Drug Dosing Est GFR ( Amer) Est GFR (Non-Af Amer) BUN/Creatinine Ratio (10-20) Glucose (70-99) mg/dl Lactate 12.9 H* (0.4-2.0) mmol/L Calcium (8.5-10.1) mg/dl Magnesium (1.8-2.4) mg/dl Total Bilirubin (0.2-1) mg/dl AST (15-37) U/L ALT (12-78) U/L Alkaline Phosphatase (45-117) U/L Total Creatine Kinase 483 H (39-308) U/L Troponin I 22.900 H* (0-0.045) ng/ml NT-Pro-B Natriuret Pep (0-1800) pg/ml Total Protein (6.4-8.2) gm/dl Albumin (3.4-5.0) gm/dl Globulin (2.5-4.0) gm/dl Albumin/Globulin Ratio (0.9-2) Beta-Hydroxybutyric Acd (0.2-2.81) mg/dl Procalcitonin (0-0.5) ng/ml Urine Color Babita Urine Appearance Cloudy A (Clear) Urine pH 5.0 (4.5-7.5) Ur Specific [place] >= 1.030 (1.000-1.030) Urine Protein 1+ H (Negative) Urine Glucose (UA) Trace H (Negative) Urine Ketones 1+ H (Negative) Urine Blood Negative (Negative) Urine Nitrite Positive A (Negative) Urine Bilirubin 2+ H (Negative) Urine Urobilinogen Positive H (Negative) Ur Leukocyte Esterase Negative (Negative) Urine RBC 0-4 (0-4) /hpf Urine WBC 10-30 H (0-5) /hpf Ur Epithelial Cells 20-30 H (0-5) /lpf Urine Bacteria 3+ H (Negative) Hyaline Casts >30 H (0-5) /lpf Granular Casts 1-5 H (0) /lpf SARS-CoV-2, RNA, NAAT (NEGATIVE) SARS-CoV-2 Ag (Rapid) (Negative) Administered Medications Discontinued Medications Albumin Human (Albumin Human 25% 12.5 Gm/50 Ml Vial) Confirm Administered Dose 25 gm IV .STK-MED ONE Stop: 07/09/20 01:51 Last Admin: 07/09/20 02:34 Dose: Not Given Documented by: [id number] Amiodarone HCl/Dextrose (Amiodarone 150mg / 100ml D5w) Confirm Administered Dose 150 mg IV .STK-MED ONE Stop: 07/09/20 03:31 Last Admin: 07/09/20 03:35 Dose: 150 mg Documented by: [id number] Cosigned by: [id number] Aspirin (Aspirin 300 Mg Supp) 300 mg MS ONE ONE Stop: 07/09/20 01:42 Last Admin: 07/09/20 04:48 Dose: Not Given Documented by: [id number] Atropine Sulfate (Atropine Sulfate 0.1 Mg/Ml 5ml Syr) Confirm Administered Dose 0.5 mg IV .STK-MED ONE Stop: 07/09/20 02:00 Last Admin: 07/09/20 02:06 Dose: 0.5 mg Documented by: [id number] Atropine Sulfate (Atropine Sulfate 0.1 Mg/Ml 10ml Syr) 0.5 mg IV NOW STA Stop: 07/09/20 04:39 Last Admin: 07/09/20 03:27 Dose: 0.5 mg Documented by: [id number] Dexamethasone (Dexamethasone Sod Inj 10 Mg/Ml Vial) 10 mg IV NOW ONE Stop: 07/09/20 00:16 Last Admin: 07/09/20 00:20 Dose: 10 mg Documented by: [id number] Furosemide (Furosemide 40 Mg/4 Ml Vial) 80 mg IV NOW STA Stop: 07/09/20 01:41 Last Admin: 07/09/20 02:31 Dose: 40 mg Documented by: [id number] Furosemide (Furosemide 40 Mg/4 Ml Vial) Confirm Administered Dose 40 mg IV .STK- MED ONE Stop: 07/09/20 01:52 Last Admin: 07/09/20 02:27 Dose: Not Given Documented by: [id number] Furosemide (Furosemide 40 Mg/4 Ml Vial) Confirm Administered Dose 40 mg IV .STK- MED ONE Stop: 07/09/20 01:54 Last Admin: 07/09/20 02:27 Dose: Not Given Documented by: [id number] Heparin Sodium (Porcine) (Heparin Sod (Porcine) 1000 Unit/Ml 10 Ml Vial) Confirm Administered Dose 10,000 units .ROUTE .STK-MED ONE Stop: 07/09/20 03:23 Last Admin: 07/09/20 04:51 Dose: Not Given Documented by: [id number] Heparin Sodium/Dextrose (Heparin Iv Standard *No* Bolus) 1 ea IV Q15M [facility]; Protocol Stop: 07/09/20 04:00 Last Admin: 07/09/20 04:53 Dose: Not Given Documented by: [id number] Admin: 07/09/20 04:47 Dose: 1 ea Documented by: [id number] Heparin Sodium/Dextrose (Heparin 72270 Unit/500 Ml D5w) Confirm Administered Dose 25,000 units IV .STK-MED ONE Stop: 07/09/20 02:33 Last Admin: 07/09/20 04:50 Dose: Not Given Documented by: [id number] Propofol (Diprivan) 1,000 mg in 100 mls @ 11.484 mls/hr IV .Q8H43M [facility]; Protocol Stop: 07/12/20 01:29 Last Titration: 07/09/20 01:47 Dose: 0 mcg/kg/min, 0 mls/hr Documented by: [id number] Admin: 07/09/20 01:28 Dose: 20 mcg/kg/min, 11.5 mls/hr Documented by: [id number] Cosigned by: [id number] Albumin Human (Albumin 25%) 12.5 gm in 50 mls @ 50 mls/hr IV Q1H [facility] Stop: 07/09/20 03:44 Last Infusion: 07/09/20 03:34 Dose: 0 mls/hr Documented by: [id number] Admin: 07/09/20 03:34 Dose: 50 mls/hr Documented by: [id number] Infusion: 07/09/20 03:31 Dose: 50 mls/hr Documented by: [id number] Admin: 07/09/20 02:31 Dose: 50 mls/hr Documented by: [id number] Heparin Sodium/Dextrose (Heparin Sodium/Dextrose) 25,000 units in 500 mls @ 31 mls/hr IV .Q16H8M [facility]; Protocol Stop: 08/08/20 01:44 Last Admin: 07/09/20 04:48 Dose: 1,550 units/hr, 31 mls/hr Documented by: [id number] Cosigned by: [id number] Doxycycline Hyclate 100 mg/ (Dextrose) 110 mls @ 50 mls/hr IV NOW [facility] [place] Stop: 07/09/20 03:52 Last Admin: 07/09/20 04:48 Dose: 50 mls/hr Documented by: [id number] Dopamine HCl/Dextrose (Dopamine / D5w) 400 mg in 250 mls @ 17.944 mls/hr IV .[id number] [facility]; Protocol Stop: 08/08/20 02:14 Last Admin: 07/09/20 02:14 Dose: Not Given Documented by: [id number] Midazolam HCl (Versed) 125 mg in 250 mls @ 2 mls/hr IV .Q96H [facility]; Protocol Stop: 08/08/20 02:59 Last Admin: 07/09/20 04:50 Dose: 1 mg/hr, 2 mls/hr Documented by: [id number] Cosigned by: [id number] Fentanyl Citrate (Fentanyl Drip) 1,250 mcg in 250 mls @ 5 mls/hr IV .Q50H [facility]; Protocol Stop: 07/23/20 02:59 Last Admin: 07/09/20 04:50 Dose: 25 mcg/hr, 5 mls/hr Documented by: [id number] Cosigned by: [id number] Piperacillin Sod/Tazobactam (Sod 4.5 gm/ Dextrose) 120 mls @ 200 mls/hr IV NOW STA; Protocol Stop: 07/09/20 04:07 Last Admin: 07/09/20 04:46 Dose: 200 mls/hr Documented by: [id number] Norepinephrine Bitartrate (Levophed/D5w) 8 mg in 508 mls @ 18.231 mls/hr IV .Q24H [facility]; Protocol Stop: 08/08/20 03:44 Last Admin: 07/09/20 04:46 Dose: 0.05 mcg/kg/min, 18.2 mls/hr Documented by: [id number] Cosigned by: [id number] Amiodarone HCl/Dextrose (Nexterone / D5w) 360 mg in 200 mls @ 33.333 mls/hr IV ONE ONE; Protocol Stop: 07/09/20 10:29 Last Admin: 07/09/20 04:42 Dose: 0.99 mg/min, 33 mls/hr Documented by: [id number] Cosigned by: [id number] Sodium Bicarbonate 150 meq/ (Sterile Water) 1,150 mls @ 100 mls/hr IV .[id number] [facility] Stop: 08/08/20 04:29 Last Admin: 07/09/20 04:51 Dose: 100 mls/hr Documented by: [id number] Midazolam HCl (Midazolam Hcl 1 Mg/Ml 2ml Vial) Confirm Administered Dose 2 mg .R OUTE .STK-MED ONE Stop: 07/09/20 03:16 Last Admin: 07/09/20 03:17 Dose: 2 mg Documented by: [id number] Miscellaneous (Rapid Sequence Induction Bag) Confirm Administered Dose 1 ea .ROUTE .STK-MED ONE Stop: 07/08/20 23:43 Last Admin: 07/09/20 00:31 Dose: 1 ea Documented by: [id number] Propofol (Propofol Bolus From Bag) 20 mg IV Q5M PRN PRN Reason: Sedation Stop: 07/12/20 01:18 Last Admin: 07/09/20 01:32 Dose: 20 mg Documented by: [id number] Cosigned by: [id number] Propofol (Propofol Iv Emulsion 10 Mg/Ml 100 Ml Vial) Confirm Administered Dose 1,000 mg IV .STK-MED ONE Stop: 07/09/20 01:25 Last Admin: 07/09/20 01:32 Dose: Not Given Documented by: [id number] Sodium Bicarbonate (Sodium Bicarb 8.4% Inj 50 Meq/50 Ml Syr) Confirm Administered Dose 50 meq IV .STK-MED ONE Stop: 07/09/20 03:27 Last Admin: 07/09/20 04:51 Dose: 50 meq Documented by: [id number] Sodium Bicarbonate (Sodium Bicarb 8.4% Inj 50 Meq/50 Ml Syr) 50 meq IV NOW STA Stop: 07/09/20 03:29 Last Admin: 07/09/20 04:51 Dose: 50 meq Documented by: [id number] Discharge Plan Visit Data Chief Complaint: Shortness of Breath/Dyspnea Stated Complaint: SHORT OF BREATH ED Provider: Isadora Quan Discharge Problem: Acute hypoxemic respiratory failure due to COVID-19, Acute renal failure (ARF), Sepsis, Pneumonia due to COVID-19 virus Patient Disposition: Admitted As Inpatient Discharge Instructions Interventions: ED Discharge Assessment Last Done: 07/09/20 02:40 Discharge Problem: Acute renal failure (ARF) Qualifiers: Acute renal failure type: unspecified Qualified Code(s): N17.9 - Acute kidney failure, unspecified Sepsis Qualifiers: Sepsis type: sepsis due to unspecified organism Sepsis acute organ dysfunction status: with acute organ dysfunction Severe sepsis acute organ dysfunction type: acute respiratory failure Acute respiratory failure type: with hypoxia Severe sepsis shock status: with septic shock Qualified Code(s): A41.9 - Sepsis, unspecified organism
[2020-07-09] MEDS ORDERED: FUROSEMIDE 40 MG/4 ML VIAL IV STA (01:40)
[2020-07-09] MEDS ORDERED: cefTRIAXone SODIUM 2,000 MG/70 ML BAG IV STA (01:41)
[2020-07-09] MEDS ORDERED: DOXYCYCLINE HYCLATE 100 MG in DEXTROSE 5% 100 ML IV STA (01:41)
[2020-07-09] MEDS ORDERED: ASPIRIN 300 MG SUPP PR ONE (01:41)
--- NOTE | 2020-07-09 01:43 | History & Physical Report ---
Date of Service July 09, 2020 Assessment & Plan (1) Acute hypoxemic respiratory failure: Multifactorial : COVID-19 pneumonia with secondary bacterial infection, severe sepsis Pulmonary congestion, acute coronary syndrome, troponin elevation with new left bundle branch block ARF on CKD, AG MA secondary to illness Transaminitis secondary to illness hypertension, stable hyperlipidemia, refusing statins as per records DM2 on oral medications, well-controlled as of recent outpatient hemoglobin A1c of 5.09 February 2020 chronic anemia, hemoglobin at baseline ICU Baseline ABG Vent management CS, Zosyn, doxycycline for now Decadron course for severe COVID-19 pneumonia Remdesivir currently precluded by abnormal LFTs Lasix albumin for now for pulmonary congestion Aspirin, beta-ahsan, IV heparin for ACS TTE, Cardiology consult RE ACS CT abdomen pelvis RE ARF Nephrology consult RE ARF, AG MA IV insulin BG goal [id number], update hemoglobin A1c DVT prophylaxis. IV heparin Full code as per , Ms. Janine Wolf. She requests updates from providers thru [id number]. Total critical care time was 40 minutes. Text document was generated using [employer] voice recognition software. It may contain grammatical or spelling errors. Kindly contact undersigned for clarification of any documentation item in question. Addendum : Heart alert not recommended for now by warp tying machine knotter on-call, Dr. Alcantar, after discussion of case over the phone. Made aware by RN of SBP 70s, cardiac rate 40s. Propofol drip stopped. IV atropine 1 dose given Dopamine drip if with persistent hypotension and bradycardia. Patient updated of developments and worsening critical condition over the phone. CODE STATUS de-escalated to DNR as per 's decision. Maintain mechanical ventilation and continue medical management as per 's specifications. History of Present Illness Chief Complaint: Shortness of breath Primary Care Provider: Tj Gibson MD Patient known as Isidro Sharpe in [facility] [employer] EMR (MR #[id number] ) History obtained from family and records. Unable to obtain history from patient secondary to intubated state. Medical history significant for hypertension, hyperlipidemia (statin refusal), DM2 on oral medications, CRI (baseline creatinine 1.3), chronic anemia (baseline hemoglobin 12-13), medication noncompliance as per records. Last confinement August 2019 for right femoral neck fracture status post surgery. Patient was at a family gathering last Thanksgiving. Sick people during gathering as per family. A few days later patient noted by to be coughing out junky sputum. Poor appetite. Fever chills at home. No aspiration. No fluid retention. No actual chest pain complaints. Increasing shortness of breath. At the ER, patient intubated for respiratory distress and hypoxemia. IV Decadron given at the ER. Medical History as above Surgical History : Hip fracture surgery Family History : Could not be obtained Personal/Social history : Non-smoker, occasional EtOH intake, retired from construction work Allergies Allergy/AdvReac Type Severity Reaction Status Date / Time No Known Allergies Allergy Verified 07/08/20 23:45 Home Medications Medication Instructions Recorded Confirmed Type metformin 500 mg PO BIDM 08/06/19 07/08/20 History acetaminophen [Tylenol] 650 mg PO DIRECTED PRN 07/08/20 07/08/20 History aspirin 81 mg PO DAILY 07/08/20 07/08/20 History Past Med/Surg History Medical History Diabetes mellitus, type II Tobacco use Surgical History No history of previous surgery Family History Other Family history non-contributory Social History Smoking Status: Never smoker Hx Substance Use: No Preferred Language: Congolese Communication 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 Beliefs That Will Affect Care: None marital status: Current Living Situation: Spouse Current Living Situation Comment: [place] Feels Safe at Home: Yes Assistive Devices: Walker Review of Systems Review of Systems: Could not be reliably obtained Physical Exam Physical Exam: GENERAL: Sedated, intubated SKIN: Normal color, warm HEENT: [place] palpebral conjunctivae, no ptosis, dry buccal mucosa NECK : Supple, no tenderness CHEST : Decreased breath sounds, no tenderness HEART : Tachycardic , no obvious murmurs ABDOMEN: Some distention, nontender EXTREMITIES : Minimal LE swelling, no LEtenderness, no other conspicuous deformities noted NEUROLOGIC : Sedated, no facial asymmetry, gait and stance not assessed Results & Data Results & Data ([facility]) Vital Signs (Past 12 Hours) Vital Signs Temp Pulse Resp BP Pulse Ox 12/05/20 01:30 116 H 16 110/77 91 07/09/20 01:16 115 H 16 92 07/09/20 01:15 116 H 16 115/84 91 07/09/20 01:06 115 H 16 116/79 92 07/09/20 01:05 115 H 18 125/95 91 07/09/20 00:46 112 H 16 92 07/09/20 00:45 114 H 16 108/88 92 07/09/20 00:41 113 H 16 91 07/09/20 00:30 112 H 16 107/83 90 07/09/20 00:22 108 H 15 106/78 85 L 07/09/20 00:15 111 H 22 92/73 L 82 L 07/09/20 00:02 108 H 18 93 07/09/20 00:00 103 H 6 L 108/78 91 07/08/20 23:58 105 H 0 L 104/76 89 L 07/08/20 23:54 114 H 5 L 104/75 89 L 07/08/20 23:46 108 H 35 H 69 L 07/08/20 23:45 107 H 34 H 106/73 70 L 07/08/20 23:43 108 H 35 H 110/70 71 L 07/08/20 23:24 109 H 34 H 85 L 07/08/20 23:23 109 H 42 H 110/72 83 L 07/08/20 23:19 35.3 C L 112 H 37 H 110/72 88 L Laboratory Results Laboratory Results WBC 18.39 K/uL (4.8-10.8) H 07/08/20 23:30 RBC 4.07 M/uL (4.7-6.1) L 07/08/20 23:30 Hgb 13.5 g/dL (14.0-18.0) L 07/08/20 23:30 Hct 41.6 % (42-52) L 07/08/20 23:30 MCV 102.2 fL (80-100) H 07/08/20 23:30 MCH 33.2 pg (25-34) 07/08/20 23:30 MCHC 32.5 g/dL (32-36) 07/08/20 23:30 RDW Std Deviation 50.0 fL (36.4-46.3) H 07/08/20 23:30 RDW Coeff of Amari 13.3 % (11.5-14.5) 07/08/20 23:30 Plt Count 388 K/uL (130-400) 07/08/20 23:30 MPV 10.3 fL (7.4-10.4) 07/08/20 23:30 Immature Gran % (Auto) 1.7 % 07/08/20 23:30 Neut % (Auto) 82.5 % 07/08/20 23:30 Lymph % (Auto) 8.0 % 07/08/20 23:30 Mclean % (Auto) 7.5 % 07/08/20 23:30 Eos % (Auto) 0.1 % 07/08/20 23:30 Baso % (Auto) 0.2 % 07/08/20 23:30 Neut # (Auto) 15.18 K/uL (1.4-6.5) H 07/08/20 23:30 Lymph # (Auto) 1.48 K/uL (1.2-3.4) 07/08/20 23:30 Mclean # (Auto) 1.38 K/uL (0.11-0.59) H 07/08/20 23:30 Eos # (Auto) 0.01 K/uL (0-0.5) 07/08/20 23:30 Baso # (Auto) 0.03 K/uL (0-0.2) 07/08/20 23:30 Immature Gran # (Auto) 0.31 K/uL (0.00-0.02) H 07/08/20 23:30 PT 14.0 Seconds (9.0-12.0) H 07/08/20 23:30 INR 1.3 (0.9-1.1) H 07/08/20 23:30 APTT 30.6 Seconds (21.0-31.0) 07/08/20 23: PTT Ratio 1.1 07/08/20 23:30 Sodium 135 mmol/L (136-145) L 07/08/20 23:30 Potassium 4.1 mmol/L (3.5-5.1) 07/08/20 23:30 Chloride 98 mmol/L (98-107) 07/08/20 23: Carbon Dioxide 13 mmol/L (21-32) L 07/08/20 23:30 Anion Gap 24.0 (3-11) H 07/08/20 23:30 BUN 53 mg/dl (7-18) H 07/08/20 23:30 Creatinine 3.88 mg/dl (0.6-1.4) H 07/08/20 23:30 Est Cr Clr Drug Dosing Not Reportable 07/08/20 23:30 Est GFR ( Amer) 16.3 07/08/20 23:30 Est GFR (Non-Af Amer) 14.0 07/08/20 23:30 BUN/Creatinine Ratio 13.5 (10-20) 07/08/20 23:30 Glucose 317 mg/dl (70-99) H* 07/08/20 23:30 Calcium 9.2 mg/dl (8.5-10.1) 07/08/20 23:30 Magnesium 2.5 mg/dl (1.8-2.4) H 07/08/20 23:30 Total Bilirubin 1.9 mg/dl (0.2-1) H 07/08/20 23:30 AST 327 U/L (15-37) H 07/08/20 23:30 ALT 271 U/L (12-78) H 07/08/20 23:30 Alkaline Phosphatase 70 U/L (45-117) 07/08/20 23:30 Troponin I 24.500 ng/ml (0-0.045) H* 07/08/20 23:30 NT-Pro-B Natriuret Pep > 64814 pg/ml (0-1800) H 07/08/20 23:30 Total Protein 8.4 gm/dl (6.4-8.2) H 07/08/20 23:30 Albumin 3.0 gm/dl (3.4-5.0) L 07/08/20 23:30 Globulin 5.4 gm/dl (2.5-4.0) H 07/08/20 23:30 Albumin/Globulin Ratio 0.6 (0.9-2) L 07/08/20 23:30 Beta-Hydroxybutyric Acd 4.39 mg/dl (0.2-2.81) H 07/08/20 23:30 Urine Color Babita 07/09/20 00:25 Urine Appearance Cloudy (Clear) A 07/09/20 00:25 Urine pH 5.0 (4.5-7.5) 07/09/20 00:25 Ur Specific Berkey >= 1.030 (1.000-1.030) 07/09/20 00:25 Urine Protein 1+ (Negative) H 07/09/20 00:25 Urine Glucose (UA) Trace (Negative) H 07/09/20 00:25 Urine Ketones 1+ (Negative) H 07/09/20 00:25 Urine Blood Negative (Negative) 07/09/20 00:25 Urine Nitrite Positive (Negative) A 07/09/20 00:25 Urine Bilirubin 2+ (Negative) H 07/09/20 00:25 Urine Urobilinogen Positive (Negative) H 07/09/20 00:25 Ur Leukocyte Esterase Negative (Negative) 07/09/20 00:25 Urine RBC 0-4 /hpf (0-4) 07/09/20 00:25 Urine WBC 10-30 /hpf (0-5) H 07/09/20 00:25 Ur Epithelial Cells 20-30 /lpf (0-5) H 07/09/20 00:25 Urine Bacteria 3+ (Negative) H 07/09/20 00:25 Hyaline Casts >30 /lpf (0-5) H 07/09/20 00:25 Granular Casts 1-5 /lpf (0) H 07/09/20 00:25 SARS-CoV-2, RNA, NAAT POSITIVE (NEGATIVE) A* 07/08/20 23:30 SARS-CoV-2 Ag (Rapid) Positive (Negative) A* 07/08/20 23:30 Diagnostic Findings Chest x-ray as per my interpretation : Bilateral infiltrates, congestion EKG as per my interpretation : Rate 115, sinus tachycardia, LAD, LAFB, new left bundle branch block
[2020-07-09] MEDS ORDERED: HEPARIN SODIUM/DEXTROSE 25,000 UNITS/500 ML BAG IV SCH (01:45)
[2020-07-09] MEDS ORDERED: ALBUMIN HUMAN 25% 12.5 GM/50 ML VIAL IV ONE (01:50)
[2020-07-09] MEDS ORDERED: FUROSEMIDE 40 MG/4 ML VIAL IV ONE ×2 (01:51→01:53)
[2020-07-09] MEDS ORDERED: ATROPINE SULFATE 0.1 MG/ML 5ML SYR IV ONE (01:59)
[2020-07-09 02:05] LABS: Troponin I 22.9 ng/ml (0-0.045)
[2020-07-09] MEDS ORDERED: DOPamine / D5W 400 MG/250 ML BAG IV SCH (02:15)
[2020-07-09] MEDS ORDERED: PIPERACILL/TAZOBAC CONSULT ACTIVE PRN (02:16)
[2020-07-09] MEDS ORDERED: PIPERACILLIN/TAZOBACTAM 4.5 GM/120 ML BAG IV ONE (02:16)
[2020-07-09] MEDS: ALBUMIN 25% 12.5 GM/50 ML VIAL IV SCH ×2 (02:31→03:34)
[2020-07-09] MEDS ORDERED: HEPARIN 25000 UNIT/500 ML D5W IV ONE (02:32)
[2020-07-09 02:43] LABS: Base Excess ABG -16.8 mEq/L (-9-1.8); HCO3 ABG 15 mmol/L (19-24); Oxygen Saturation ABG 93.9 % (90-95); PCO2 ABG 62 mmHg (35-46); PO2 ABG 97 mmHg (80-95)
[2020-07-09 02:45] LABS: Allen Test POS (Pos)
[2020-07-09 02:46] LABS: pH ABG 6.99 (7.35-7.45)
[2020-07-09] MEDS ORDERED: MIDAZOLAM BOLUS FROM BAG IV PRN (02:58)
[2020-07-09] MEDS ORDERED: MIDAZOLAM HCL 125 MG/250 ML BAG IV SCH (03:00)
[2020-07-09] MEDS ORDERED: fentaNYL DRIP 1,250 MCG/250 ML BAG IV SCH (03:00)
[2020-07-09] MEDS ORDERED: MIDAZOLAM HCL 1 MG/ML 2ML VIAL ONE (03:15)
[2020-07-09] MEDS ORDERED: HEPARIN SOD (PORCINE) 1000 UNIT/ML 10 ML VIAL ONE (03:22)
[2020-07-09] MEDS ORDERED: SODIUM BICARB 8.4% INJ 50 MEQ/50 ML SYR IV ONE (03:26)
[2020-07-09] MEDS ORDERED: SODIUM BICARB 8.4% INJ 50 MEQ/50 ML SYR IV STA (03:28)
[2020-07-09] MEDS ORDERED: AMIODARONE 150MG / 100ML D5W IV ONE (03:30)
[2020-07-09] MEDS ORDERED: PIPERACILLIN/TAZOBACTAM 4.5 GM in DEXTROSE 5% 100 ML IV STA (03:32)
[2020-07-09] MEDS ORDERED: Standard Conc 16mcg/mL; 8mg in 500mL IV SCH (03:45)
[2020-07-09] MEDS ORDERED: 0.2 MICRON FILTER SET 1 EA IV ONE (04:17)
--- NOTE | 2020-07-09 04:18 | Critical Care Consultation ---
Date of Consultation July 09, 2020 Assessment & Plan (1) Acute hypoxemic respiratory failure: Impression: 79-year-old male presents with acute hypoxic respiratory failure from COVID-19 pneumonia, multisystem organ failure, ARF, NSTEMI. Intubated in the emergency department and presents to the ICU requiring vasopressor support, bicarb drip, on heparin drip, amiodarone, and insulin drip. Was sedated with fentanyl and Versed drips as well. He was placed on broad- spectrum antibiotics and started on IV dexamethasone. Patient not candidate for remdesivir due to acute renal failure. CVC inserted shortly after arrival. At 1 point patient entered junctional rhythm and converted to V. tach, requiring epinephrine push, amnio push and bicarb 50 mg amps x2. CODE STATUS had previously been discussed between the hospitalist and the patient's , and he had been made conditional Code with no compressions or no shocks. Cardiology was consulted regarding NSTEMI with new LBBB, and ultimately patient not candidate for Bricklayer'S Assistant at this time and medically managed with heparin drip. T roponin did trend down. Nephrology was also consulted regarding acute renal failure which ultimately presents as ATN, and could be contributing to severe metabolic acidosis in addition to the patient's significant lactic acidosis which is likely ischemic. Patient placed on bicarb drip and there was discussion in regards to transfer for CRRT. Goals of care were again readdressed between the sample stitcher and the patient's this morning. Ultimately patient's condition and prognosis is severely guarded given his multisystem organ failure and severe ARDS from COVID-19. Decision was made to withdraw care by family and patient did shortly after palliative extubation. I have personally spent 95 minutes of critical care time in the direct management of this patient. This is a life/limb threatening event. This includes time spent evaluating patient, direct bedside care, chart review, placing orders, interpretation of diagnostic studies, discussion with consultants, patient, and family members, as well as other required patient management activities. This time is exclusive of all separately billable procedures, and teaching time and separate from and in addition to any other critical care service time. Thank you for allowing us to participate in the care of this patient. Please refer to my attending physician's documentation for any further recommendations. (2) Acute hypoxemic respiratory failure due to COVID-19: (3) Acute non-ST elevation myocardial infarction (NSTEMI): (4) Left bundle branch block (LBBB): (5) Acute renal failure (ARF): (6) Hyperglycemia due to diabetes mellitus: (7) Diabetes mellitus, type II: (8) Shock circulatory: (9) Ventricular tachycardia: (10) Bradycardia: (11) Metabolic acidosis: History of Present Illness Attending Physician: Igelsia Vogel MD History of Present Illness 79-year-old male with history of DM type II (on metformin), and smokeless tobacco who presented to the ED via EMS last night with hypoxia and respiratory distress. Patient had been exposed to COVID-19 during of last week and became symptomatic on Saturday. Patient was found to have oxygen saturation in the 50s and was placed on 100% nonrebreather, and continued to be severely tachypneic. Ultimately he was intubated in the emergency department. Patient also found to have significant ORTIZ, NSTEMI with troponin of 24 and new left bundle branch block, metabolic acidosis, and hypotensive. At 1 point in the emergency department he became significantly bradycardic requiring atropine. He was transferred to the Covid unit under ICU care. I placed a central line following his arrival. At 1 point patient became severely bradycardic and appeared to be in a junctional rhythm on the monitor. He was given atropine, bicarb and converted to what appeared to be ventricular tachycardia on the monitor. CODE STATUS had been addressed with the hospitalist and he was conditional code without shocks or compressions. He received epinephrine and bicarb x2 and amiodarone, and ultimately converted to sinus tachycardia. Patient's prognosis and outlook was significant poor as he continued to have worsening renal function and acidosis, in severe ARDS, and septic shock with multisystem organ failure. Goals of care discussion was later had with and the patient's , and ultimately decision was made to withdrawal for comfort care in which the patient shortly after being extubated. Allergies Allergy/AdvReac Type Severity Reaction Status Date / Time No Known Allergies Allergy Verified 07/08/20 23:45 Home Medications Medication Instructions Recorded Confirmed Type metformin 500 mg PO BIDM 08/06/19 07/08/20 History acetaminophen [Tylenol] 650 mg PO DIRECTED PRN 07/08/20 07/08/20 History aspirin 81 mg PO DAILY 07/08/20 07/08/20 History Patient History Medical History Diabetes mellitus, type II Tobacco use Surgical History No history of previous surgery Family History Other Family history non-contributory Social History Smoking Status: Never smoker Hx Substance Use: No Preferred Language: Serbian 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 Symmetrical chest wall movement. No wheezes or crackles auscultated. Breathing synchronous with ventilator settings. Cardiovascular: LBBB on EKG. Appears to be sinus tachycardia on monitor but has had episodes of V. tach and junctional bradycardia. S1-S2 auscultated. No edema. Radial and pedal pulses diminished but palpable. Capillary refill sluggish. Gastrointestinal (Abdomen): normal bowel sounds, soft, nontender, no hepatosplenomegaly Musculoskeletal: Unable to assess due to sedation/paralytics Neurologic: Unable to assess due to sedation/paralytics Psychiatric: Unable to assess due to sedation/paralytics Genitourinary: Indwelling Fuller catheter present Results & Data Results & Data ([facility]) Vital Signs (Past 12 Hours) Vital Signs Temp Pulse Resp BP Pulse Ox 07/09/20 04:09 35.8 C L 128 H 77/67 L 100 07/09/20 04:07 35.8 C L 128 H 86/68 L 99 07/09/20 04:05 35.8 C L 127 H 89/71 L 100 07/09/20 04:03 35.8 C L 118 H 89/64 L 100 07/09/20 04:01 35.8 C L 119 H 105/77 100 07/09/20 04:00 35.8 C L 119 H 100 07/09/20 03:55 35.8 C L 67 07/09/20 03:51 35.8 C L 61 07/09/20 03:45 35.8 C L 65 64 L 07/09/20 03:40 35.8 C L 137 H 93/81 L 81 L 07/09/20 03:38 35.8 C L 143 H 88/79 L 89 L 07/09/20 03:37 35.8 C L 145 H 90 07/09/20 03:36 35.8 C L 149 H 92 07/09/20 03:32 35.8 C L 154 H 81/65 L 100 07/09/20 03:31 35.7 C L 152 H 91 07/09/20 03:30 35.7 C L 138 H 73/45 L 86 L 07/09/20 03:15 35.8 C L 126 H 100 07/09/20 03:01 35.8 C L 129 H 100 07/09/20 03:00 35.8 C L 129 H 93/73 L 100 07/09/20 02:59 35.7 C L 131 H 93/76 L 100 07/09/20 02:56 132 H 24 100 07/09/20 02:54 132 H 07/09/20 02:33 134 H 21 96/81 L 94 07/09/20 02:32 134 H 21 93 07/09/20 02:31 134 H 22 101/16 L 94 07/09/20 02:20 133 H 12 100/73 94 07/09/20 02:19 134 H 19 94 07/09/20 02:15 134 H 20 84/76 L 93 07/09/20 02:13 135 H 1 L 93/82 L 93 07/09/20 02:06 134 H 18 97/75 L 07/09/20 02:02 93 H 15 75/53 L 07/09/20 01:59 59 L 4 L 85/33 L 82 L 07/09/20 01:56 60 19 57/38 L 86 L 07/09/20 01:48 111 H 14 79/62 L 91 07/09/20 01:47 111 H 14 85/66 L 95 07/09/20 01:39 114 H 16 102/76 89 L 07/09/20 01:30 116 H 16 110/77 91 07/09/20 01:16 115 H 16 92 07/09/20 01:15 116 H 16 115/84 91 07/09/20 01:06 115 H 16 116/79 92 07/09/20 01:05 115 H 18 125/95 91 07/09/20 00:46 112 H 16 92 07/09/20 00:45 114 H 16 108/88 92 07/09/20 00:41 113 H 16 91 07/09/20 00:30 112 H 16 107/83 90 07/09/20 00:22 108 H 15 106/78 85 L 07/09/20 00:15 111 H 22 92/73 L 82 L 07/09/20 00:02 108 H 18 93 07/09/20 00:00 103 H 6 L 108/78 91 07/08/20 23:58 105 H 0 L 104/76 89 L 07/08/20 23:54 114 H 5 L 104/75 89 L 07/08/20 23:46 108 H 35 H 69 L 07/08/20 23:45 107 H 34 H 106/73 70 L 07/08/20 23:43 108 H 35 H 110/70 71 L 07/08/20 23:24 109 H 34 H 85 L 07/08/20 23:23 109 H 42 H 110/72 83 L 07/08/20 23:19 35.3 C L 112 H 37 H 110/72 88 L Coding Level of Care Code Critical Care ea addt'l 30 min Diagnoses Acute hypoxemic respiratory failure J96.01 Acute hypoxemic respiratory failure due to COVID-19 U07.1; J96.01 Acute non-ST elevation myocardial infarction (NSTEMI) I21.4 Left bundle branch block (LBBB) I44.7 Acute renal failure (ARF) N17.9 Hyperglycemia due to diabetes mellitus E11.65 Diabetes mellitus, type II E11.9 Shock circulatory R57.9 Ventricular tachycardia I47.2 Bradycardia R00.1 Metabolic acidosis E87.2
--- NOTE | 2020-07-09 04:19 | Procedure Note ---
Procedure Note Date of Service July 09, 2020 Coding
--- NOTE | 2020-07-09 04:19 | Procedure Note ---
Procedure Note Date of Service July 09, 2020 Note FEMORAL CENTRAL LINE PROCEDURE NOTE: Procedure: Femoral Central Line Placement Attending: Dr. Prasad Provider: MARTINE Burger Indication: Central Drug Administration, Poor Venous Access, Multiple Lab Draws Necessary, etc. Anesthesia: None Line placed emergently in the setting of shock requiring vasopressor support. A time-out was completed verifying correct patient, procedure, site, positioning, and implants(s) or special equipment if applicable. Patients left groin was cleansed and draped in the typical sterile fashion using Chloraprep. The Femoral Vein and Femoral Artery were identified using ultrasound. Femoral Vein was cannulated under direct ultrasound guidance using an introducer needle on a syringe. Good venous blood return was maintained prior to removal of syringe from introducer needle. Using Seldinger Technique, a guide wire was advanced through the introducer needle without resistance. The introducer needle was removed and ultrasound images were obtained of the guide wire within the Femoral Vein A small incision was made in penetrating fashion at the guide wire insertion site utilizing an 11 blade scalpel. The dilator was advanced to the vessel without resistance. The dilator was exchanged for the triple lumen catheter which was advanced into the vessel without resistance. The guide wire was removed intact from the catheter without issue. Claves were placed on each catheter tip with confirmation of good blood flow from each lumen. Each port was easily flushed with sterile saline. The catheter was placed at the hub and sutured in place. BioPatch was applied to the catheter and a sterile Tegaderm dressing was applied over the catheter with careful attention to sterility. Patient tolerated procedure well. No immediate complications were met. Procedural Ultrasound Guidance: Procedure Date: 07/09/2020 Indication: Central line insertion Attending: Dr. Prasad Provider: MARTINE Burger Artery AND Vein visualized: Yes Compressible Vein: Yes Guidewire or Short Catheter seen in vein prior to dilation: Yes Line confirmed in Vein with ultrasound: Yes Coding CPT Codes Tubes, Drains, and Vasc Access - Tubes, Drains, and Vasc Access: [id number] Place catheter in vein superior or inferior vena cava ([id number]) Tubes, Drains, and Vasc Access - Tubes, Drains, and Vasc Access: [id number] Ultrasound Guidance For Vascular ([id number]) [facility] Procedure Codes (Charges) Tubes, Drains, and Vasc Access Procedure 1: Tubes, Drains, and Vasc Access: [id number] Place catheter in vein superior or inferior vena cava Procedure 2: Tubes, Drains, and Vasc Access: [id number] Ultrasound Guidance For Vascular
[2020-07-09] MEDS ORDERED: AMIODARONE / D5W 360 MG/200 ML BAG IV ONE (04:30)
[2020-07-09] MEDS ORDERED: SODIUM BICARBONATE 8.4% 150 MEQ in WATER, STERILE 1,000 ML IV SCH (04:30)
[2020-07-09] MEDS ORDERED: LORazepam 1 MG/2 ML VIAL IV PRN (04:38)
[2020-07-09] MEDS ORDERED: fentaNYL citrate 100 MCG/2 ML VIAL IV PRN (04:38)
[2020-07-09] MEDS ORDERED: ACETAMINOPHEN 65 ML IV PRN (04:38)
[2020-07-09] MEDS ORDERED: ATROPINE SULFATE 0.1 MG/ML 10ML SYR IV STA (04:38)
[2020-07-09] MEDS ORDERED: ICU PROTOCOL FOR HYPERGLYCEMIA PRN (04:38)
[2020-07-09] MEDS ORDERED: MODERATE STRESS LEVEL ONE (04:38)
[2020-07-09] MEDS ORDERED: INSULIN PROTOCOL GOAL RANGE ONE (04:38)
[2020-07-09] MEDS ORDERED: INSULIN REGULAR 250 UNITS in SODIUM CHLORIDE 0.9% 247.5 ML IV SCH (04:38)
[2020-07-09] MEDS ORDERED: PROMETHAZINE HCL 12.5 MG in SODIUM CHLORIDE 0.9% 50 ML IV PRN (04:38)
[2020-07-09 04:42] LABS: iSTAT Art Bld Gas pCO2 Correct 47 mmHg (35-46); iSTAT Arterial Blood Gas HCO3 15 meg/L (19-24); iSTAT Arterial Blood Gas pCO2 49 mmHg (35-46); iSTAT Arterial Blood Gas pH 7.08 (7.35-7.45); iSTAT Arterial Blood Gas pO2 183 mmHg (80-95); iSTAT Arterial Blood Gas pO2 C 177; iSTAT Carbon Dioxide 16 mmol/L (24-31); iSTAT FiO2 100 %; iSTAT Hematocrit 37 % (42-52); iSTAT Hemoglobin 12.6 g/dl (14.0-18.0); iSTAT Site L Brachial; iSTAT Sodium 136 mmol/L (135-144)
[2020-07-09] MEDS: Heparin IV Standard *NO* Bolus IV SCH ×2 (04:47→04:53)
[2020-07-09] MEDS ORDERED: INSULIN ASPART 100 UNITS/ML 3 ML PEN SC SCH (07:30)
[2020-07-09] MEDS ORDERED: FAMOTIDINE 20 MG in SYRINGE 3 ML IV SCH (09:00)
[2020-07-09] MEDS ORDERED: AMIODARONE / D5W 360 MG/200 ML BAG IV SCH (10:30)
[2020-07-09] MEDS ORDERED: VECURONIUM BROMIDE IV ONE (11:42)
[2020-07-09] MEDS ORDERED: MIDAZOLAM HCL 5 MG/ML VIAL IV ONE (11:42)
[2020-07-09] MEDS ORDERED: ETOMIDATE 2 MG/ML 20 ML VIAL IV ONE (11:42)
[2020-07-09] MEDS ORDERED: ATROPINE SULFATE 0.1 MG/ML 10ML SYR IV ONE (11:42)
[2020-07-09] MEDS ORDERED: SODIUM CHLORIDE 0.9% INJ 10 ML VIAL IV ONE (11:42)
[2020-07-09] MEDS ORDERED: SUCCINYLCHOLINE CHLORIDE 20 MG/ML 10 ML VIAL IV ONE (11:42)
[2020-07-09] MEDS ORDERED: PIPERACILLIN/TAZOBACTAM 3.375 GM in DEXTROSE 5% 100 ML IV SCH (12:00)
--- NOTE | 2020-07-09 14:55 | XRay Report ---
XR chest 1V portable CLINICAL HISTORY: post intubation xray COMPARISON STUDY: Chest radiograph July 08, 2020. FINDINGS: Tip of endotracheal tube projects over the proximal aspect of the right mainstem bronchus. Tube could be withdrawn 2 cm. Extensive bilateral airspace opacities persist. There is no pneumothora x. No pleural effusion is identified. Cardiomegaly is unchanged. There is relative lucency of the rig ht lower lung. IMPRESSION: 1. Tip of endotracheal tube projects over the proximal aspect of the right mainstem bronchus. The tub e could be withdrawn 2 cm. 2. Persistent extensive bilateral airspace opacities which favor pneumonia. Pulmonary edema could nanda ear similar. 3. Relative lucency of the right lower lung. This likely reflects aerated lung. A pneumothorax is con sidered less likely. ACT 112: Negative or not required by law. Electronically signed by: Kevin Hernandez M.D. 07/09/2020 7:47 AM
--- NOTE | 2020-07-09 15:03 | XRay Report ---
XR chest 1V portable CLINICAL HISTORY: SEPSIS COMPARISON STUDY: Chest radiograph August 06, 2019. FINDINGS: Lung volumes are normal. No pneumothorax or pleural effusion is identified. Extensive bilat eral airspace opacities are noted. Note is made of mild cardiomegaly. IMPRESSION: Extensive bilateral airspace opacities. Pneumonia is favored although pulmonary edema co uld appear similar. Radiographic follow-up is recommended. ACT 112: Negative or not required by law. Electronically signed by: Kevin Hernandez M.D. 07/09/2020 7:24 AM
[2020-07-09 17:17] LABS: Basophils # (auto) 0.09 K/uL (0-0.2); Basophils % (auto) 0.4 %; Eosinophils # (auto) 0.02 K/uL (0-0.5); Eosinophils % (auto) 0.1 %; Hematocrit (blood only) 37.7 % (42-52); Immature Granulocytes # (auto) 0.96 K/uL (0.00-0.02); Immature Granulocytes % (auto) 4.5 %; Lymphocytes # (auto) 1.48 K/uL (1.2-3.4); Lymphocytes % (auto) 6.9 %; Mean Corpuscular Hemoglobin 32.7 pg (25-34); Mean Corpuscular Hgb Conc 31.8 g/dL (32-36); Mean Corpuscular Volume 102.7 fL (80-100); Mean Platelet Volume 10.1 fL (7.4-10.4); Monocytes # (auto) 0.74 K/uL (0.11-0.59); Monocytes % (auto) 3.5 %; Neutrophils % (auto) 84.6 %; Nucleated RBC # (auto) 0.03 K/uL (0-0); Nucleated RBC % (auto) 0.1 %; Platelet Count 343 K/uL (130-400); RDW Coefficient of Variation 13.4 % (11.5-14.5); RDW Standard Deviation 50.6 fL (36.4-46.3); Red Blood Count 3.67 M/uL (4.7-6.1); White Blood Count 21.39 K/uL (4.8-10.8)
[2020-07-09 17:24] LABS: Acetaminophen < 2 ug/ml (10-30); BUN Creatinine Ratio 13.4 (10-20); Blood Urea Nitrogen 56 mg/dl (7-18); Calcium 8.4 mg/dl (8.5-10.1); Carbon Dioxide 17 mmol/L (21-32); Chloride 99 mmol/L (98-107); Creatinine Clr Calc Pharmacy 17.6 ml/min; Est GFR (African American) 14.7; Est GFR (Non-African American) 12.7; Glucose 387 mg/dl (70-99); Potassium 4.1 mmol/L (3.5-5.1); Salicylate 3.6 mg/dl (2.8-20); Sodium 136 mmol/L (136-145)
--- NOTE | 2020-07-09 18:58 | Communication Note ---
Date of Service: July 09, 2020 Early today the beekeeper discussed with pt about the poor prognosis Family made he decision to transition to comfort care Pt was terminal extubated note Called from Nurse that pt ceased to breath. Pt was unresponsive with eyes closed No heart sound, no lung sound noted on auscultation No pulse and no tactile stimuli Pupils no reactive to light Time of 11:43 I called the to notify her and answered all her questions certificate completed and signed MD Wilner
[2020-07-09 20:12] LABS: INR 1.5 (0.9-1.1); Partial Thromboplastin Ratio 3.2; Prothrombin Time 15.6 Seconds (9.0-12.0)
[2020-07-09 20:21] LABS: Partial Thromboplastin Time 90.1 Seconds (21.0-31.0)
[2020-07-09 20:32] LABS: iSTAT Sodium 131 mmol/L (135-144)
[2020-07-09 20:37] LABS: iSTAT Art Bld Gas pCO2 Correct 34 mmHg (35-46); iSTAT Art Bld Gas pH Corrected 7.309 (7.35-7.45); iSTAT Arterial Blood Gas pCO2 35 mmHg (35-46); iSTAT Arterial Blood Gas pO2 98 mmHg (80-95); iSTAT Hematocrit 36 % (42-52); iSTAT Hemoglobin 12.2 g/dl (14.0-18.0); iSTAT Potassium 4.7 mmol/L (3.3-5.0)
[2020-07-09 20:38] LABS: Patient Temperature 36.2; iSTAT Allen Test Acceptable; iSTAT Arterial Blood Gas HCO3 17 meg/L (19-24); iSTAT Arterial Blood Gas pO2 C 93; iSTAT Carbon Dioxide 18 mmol/L (24-31); iSTAT FiO2 80 %; iSTAT Sample Type Arterial
[2020-07-09 20:39] LABS: iSTAT Site R Radial; iSTAT SpO2 100
[2020-07-09] MEDS ORDERED: DOXYCYCLINE HYCLATE 100 MG in DEXTROSE 5% 100 ML IV SCH (21:00)
--- NOTE | 2020-07-10 00:37 | Discharge Summary ---
Date of Service July 09, 2020 Admission HPI Per Admitting Provider Patient known as Isidro Sharpe in [facility] EMR (MR #[id number] ) History obtained from family and records. Unable to obtain history from patient secondary to intubated state. Medical history significant for hypertension, hyperlipidemia (statin refusal), DM2 on oral medications, CRI (baseline creatinine 1.3), chronic anemia (baseline hemoglobin 12-13), medication noncompliance as per records. Last confinement August 2019 for right femoral neck fracture status post surgery. Patient was at a family gathering last . Sick people during gathering as per family. A few days later patient noted by to be coughing out junky sputum. Poor appetite. Fever chills at home. No aspiration. No fluid retention. No actual chest pain complaints. Increasing shortness of breath. At the ER, patient intubated for respiratory distress and hypoxemia. IV Decadron given at the ER. Medical History as above Surgical History : Hip fracture surgery Family History : Could not be obtained Personal/Social history : Non-smoker, occasional EtOH intake, retired from construction work Admission Exam Per Admitting Provider GENERAL: Sedated, intubated SKIN: Normal color, warm HEENT: [place] palpebral conjunctivae, no ptosis, dry buccal mucosa NECK : Supple, no tenderness CHEST : Decreased breath sounds, no tenderness HEART : Tachycardic , no obvious murmurs ABDOMEN: Some distention, nontender EXTREMITIES : Minimal LE swelling, no LEtenderness, no other conspicuous deformities noted NEUROLOGIC : Sedated, no facial asymmetry, gait and stance not assessed Principal Diagnosis Acute hypoxemic respiratory failure COVID-19 pneumonia Discharge Exam Pt was unresponsive with eyes closed No heart sound, no lung sound noted on auscultation No pulse and no tactile stimuli Pupils no reactive to light Discharge Data Allergies Allergy/AdvReac Type Severity Reaction Status Date / Time No Known Allergies Allergy Verified 07/08/20 23:45 Consultations 07/09/20 03:28 Consult Nephrology Routine 07/09/20 04:38 Consult Cardiology Routine Consult Division Superintendent Routine XR chest 1V portable CLINICAL HISTORY: post intubation xray COMPARISON STUDY: Chest radiograph July 08, 2020. FINDINGS: Tip of endotracheal tube projects over the proximal aspect of the right mainstem bronchus. Tube could be withdrawn 2 cm. Extensive bilateral airspace opacities persist. There is no pneumothorax. No pleural effusion is identified. Cardiomegaly is unchanged. There is relative lucency of the right lower lung. IMPRESSION: 1. Tip of endotracheal tube projects over the proximal aspect of the right mainstem bronchus. The tube could be withdrawn 2 cm. 2. Persistent extensive bilateral airspace opacities which favor pneumonia. Pulmonary edema could appear similar. 3. Relative lucency of the right lower lung. This likely reflects aerated lung. A pneumothorax is considered less likely. ACT 112: Negative or not required by law. Electronically signed by: Kevin Hernandez M.D. 07/09/2020 7:47 AM Dictated: 07/09/2043Transcribed: 07/09/20742 XR chest 1V portable CLINICAL HISTORY: SEPSIS COMPARISON STUDY: Chest radiograph August 06, 2019. FINDINGS: Lung volumes are normal. No pneumothorax or pleural effusion is identified. Extensive bilateral airspace opacities are noted. Note is made of mild cardiomegaly. IMPRESSION: Extensive bilateral airspace opacities. Pneumonia is favored although pulmonary edema could appear similar. Radiographic follow-up is recommended. ACT 112: Negative or not required by law. Electronically signed by: Kevin Hernandez M.D. 07/09/2020 7:24 AM Dictated: 07/09/20722Transcribed: 07/09/20722 Hospital Course (1) Acute hypoxemic respiratory failure: COVID 19 Pneumonia Early today the reading assistant discussed with pt about the poor prognosis Family made he decision to transition to comfort care Pt was terminal extubated note Called from Nurse that pt ceased to breath. Pt was unresponsive with eyes closed No heart sound, no lung sound noted on auscultation No pulse and no tactile stimuli Pupils no reactive to light Time of 11:43 I called the to notify her and answered all her questions certificate completed and signed MD Wilner Total Time Total Time Spent Total Time Spent (In Minutes): 10 minutes Total Time Includes: Examination of the Patient, Discharge Planning, Medication Reconciliation, Communication With Other Providers and Other Discharge Plan Discharge Items Patient Disposition:
[2020-07-10] MEDS ORDERED: ASPIRIN 300 MG SUPP PR SCH (09:00)
[2020-07-10] MEDS ORDERED: dexAMETHasone 6 MG in DEXTROSE 5% 25 ML IV SCH (09:00)
--- NOTE | 2020-07-10 10:36 | Electrocardiogram Report ---
Test Reason : Blood Pressure : / mmHG Vent. Rate : 105 BPM Atrial Rate : 105 BPM P-R Int : 160 ms QRS Dur : 166 ms QT Int : 406 ms P-R-T Axes : 050 012 161 degrees QTc Int : 536 ms Sinus tachycardia Left bundle branch block Abnormal ECG When compared with ECG of 06-AUG-2019 12:43, Left bundle branch block is now Present Confirmed by Hemant Orellana ([id number]) on 07/10/2020 10:36:18 AM Referred By: REFERRED SELF Confirmed By:Hemant Orellana
--- NOTE | 2020-07-10 10:37 | Electrocardiogram Report ---
Test Reason : Blood Pressure : / mmHG Vent. Rate : 115 BPM Atrial Rate : 115 BPM P-R Int : 160 ms QRS Dur : 158 ms QT Int : 410 ms P-R-T Axes : 016 003 158 degrees QTc Int : 567 ms Sinus tachycardia Left bundle branch block Abnormal ECG When compared with ECG of 08-JUL-2020 23:19, (unconfirmed) No significant change Confirmed by Hemant Orellana ([id number]) on 07/10/2020 10:36:44 AM Referred By: REFERRED SELF Confirmed By:Hemant Orellana
--- NOTE | 2020-07-10 10:38 | Electrocardiogram Report ---
Test Reason : Blood Pressure : / mmHG Vent. Rate : 061 BPM Atrial Rate : 092 BPM P-R Int : 000 ms QRS Dur : 170 ms QT Int : 450 ms P-R-T Axes : 052 094 169 degrees QTc Int : 453 ms Sinus rhythm with complete heart block with ventricular escape complexes Left bundle branch block Abnormal ECG When compared with ECG of 09-JUL-2020 00:05, (unconfirmed) Significant changes have occurred Confirmed by Hemant Orellana ([id number]) on 07/10/2020 10:38:30 AM Referred By: REFERRED SELF Confirmed By:Hemant Orellana
== END 2020-07-09 11:43 | disposition expired | DRG 871 ==
LOC: ED 23:16 → 2E 07-09 01:45